=== PATIENT | female | born 1985 | race Two or more races ===

== ENCOUNTER 2016-09-20 14:06 | Inpatient (IN) | payer MEDICAID ==
[2016-09-20] MEDS ORDERED: Acetaminophen 325 MG Tab PO PRN (15:45)
[2016-09-20] MEDS ORDERED: Sodium Chloride 0.9% 10 ML Syringe FLUSH PRN (15:45)
[2016-09-20] MEDS ORDERED: fentaNYL 100 MCG/2 ML SDV IVPUSH PRN (15:45)
--- NOTE | 2016-09-20 15:54 | PCM.LDHP ---
L&D History of Present Illness - General Date of Service: 09/20/16 (SROM at home) Admit Problem/Dx: Patient Status Order with Admit Dx/Problem 09/20/16 15:45 Patient Status [ADT] Routine Patient Status: Refer to Observation Admission Diagnosis/Problem: Reason for Admit: SROM at home Nurse Unit Type: Labor and Delivery Admitting Physician: Audrey Judge Attending Physician: Audrey Judge Admission Diagnosis/Problem Admission Diagnosis/Problem Source of Information: Patient History Limitations: Reports: No limitations - History of Present Illness Timing/Duration: Reports: minutes: (6 minutes) Location, : Reports: Abdomen Quality: Reports: Pressure Severity: mild Improves with: Reports: None Worsens with: Reports: None Associated Symptoms: Reports: vaginal fluid - Related Data Allergies/Adverse Reactions: Allergies Allergy/AdvReac Type Severity Reaction Status Date / Time No Known Allergies Allergy Verified 03/28/16 12:08 Home Medications: Home Meds Vits #90/Iron Fum/FA [ Formula] 1 each PO DAILY 09/20/16 [ History] Past Medical History - Past Health History Medical/Surgical History: Denies Medical/Surgical History Respiratory History: Reports: Asthma, Other (see below) Other 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 History: 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 Para: 3 LMP (Approximate): (GUSTAVO 09/22/16) - Infectious Disease History Infectious Disease History: Reports: None Social & Family History - Family History Family Medical History: Noncontributory - Tobacco Use Smoking Status *Q: Never Smoker - Recreational Drug Use Recreational Drug Use: No H&P Review of Systems - Review of Systems: Review Of Systems: See Below General: Reports: no symptoms HEENT: Reports: no symptoms Pulmonary: Reports: no symptoms Cardiovascular: Reports: no symptoms Gastrointestinal: Reports: No symptoms Genitourinary: Reports: no symptoms Musculoskeletal: Reports: no symptoms Skin: Reports: no symptoms Psychiatric: Reports: no symptoms Neurological: Reports: no symptoms Hematologic/Lymphatic: Reports: no symptoms Immunologic: Reports: no symptoms L&D Exam - Exam Exam: See Below - Vital Signs Weight: 141 lb 8.588 oz - OB Specific Contraction Intensity: Mild movement: active heart tones: present heart tones per min: 130 Heart Rate (FHR) Variability: Moderate (6-25 bmp) Presentation: Vertex Estimated Weight: 7 pounds - Tesfaye Score Tesfaye Score Cervix Position: Posterior Tesfaye Score Consistency: Soft Tesfaye Score Effacement: 31-50% Tesfaye Score Dilation: 3-4 cm Tesfaye Score 's Station: -1 ,0 Tesfaye Score Total: 7 - Exam General: alert, oriented HEENT: PERRLA, Mucosa moist & pink Neck: supple Lungs: Clear to auscultation Cardiovascular: regular rhythm Abdomen: normal bowel sounds Rectal Exam: Normal exam Genitourinary: Normal external exam Back Exam: normal inspection, full range of motion Extremities: normal inspection Skin: warm, dry, intact Neurological: cranial nerves intact, reflexes equal bilateral Psychiatric: alert, normal affect, normal mood - Patient Data Lab Results last 24 hrs: Laboratory Results - last 24 hr 09/20/16 09/20/16 09/20/16 Range/Units 14:41 14:45 14:45 WBC (4.5-11.0) K/uL RBC (3.30-5.50) M/uL Hgb (12.0-15.0) g/dL Hct (36.0-48.0) % MCV (80-98) fL MCH (27-31) pg MCHC (32-36) % Plt Count (150-400) K/uL Neut % (Auto) (36-66) % Lymph % (Auto) (24-44) % [place] % (Auto) (2-6) % Eos % (Auto) (2-4) % Baso % (Auto) (0-1) % Urine Color Yellow Urine Appearance Clear Urine pH 7.0 (4.5-8.0) Ur Specific [place] 1.000 L (1.008-1.030) Urine Protein Negative (NEGATIVE) mg/dL Urine Glucose (UA) Normal (NEGATIVE) mg/dL Urine Ketones Negative (NEGATIVE) mg/dL Urine Occult Blood Negative (NEGATIVE) Urine Nitrite Negative (NEGATIVE) Urine Bilirubin Negative (NEGATIVE) Urine Urobilinogen Normal (NORMAL) mg/dL Ur Leukocyte Esterase Negative (NEGATIVE) Urine RBC Not seen (0-5) Urine WBC Not seen (0-5) Ur Epithelial Cells Few Amorphous Sediment Not seen Urine Bacteria Rare Urine Mucus Not seen Membrane Rupture Positive H (NEGATIVE) Urine Opiates Screen Negative (NEGATIVE) Ur Oxycodone Screen Negative (NEGATIVE) Urine Methadone Screen Negative (NEGATIVE) Ur Propoxyphene Screen Negative (NEGATIVE) Ur Barbiturates Screen Negative (NEGATIVE) Ur Tricyclics Screen Negative (NEGATIVE) Ur Phencyclidine Scrn Negative (NEGATIVE) Ur Amphetamine Screen Negative (NEGATIVE) U Methamphetamines Scrn Negative (NEGATIVE) Urine MDMA Screen Negative (NEGATIVE) U Benzodiazepines Scrn Negative (NEGATIVE) U Cocaine Metab Screen Negative (NEGATIVE) U Marijuana (THC) Screen Negative (NEGATIVE) 09/20/16 Range/Units 14:52 WBC 7.4 (4.5-11.0) K/uL RBC 4.15 (3.30-5.50) M/uL Hgb 11.8 L (12.0-15.0) g/dL Hct 35.3 L (36.0-48.0) % MCV 85 (80-98) fL MCH 28 (27-31) pg MCHC 33 (32-36) % Plt Count 186 (150-400) K/uL Neut % (Auto) 77 H (36-66) % Lymph % (Auto) 13 L (24-44) % [place] % (Auto) 9 H (2-6) % Eos % (Auto) 0 L (2-4) % Baso % (Auto) 1 (0-1) % Urine Color Urine Appearance Urine pH (4.5-8.0) Ur Specific [place] (1.008-1.030) Urine Protein (NEGATIVE) mg/dL Urine Glucose (UA) (NEGATIVE) mg/dL Urine Ketones (NEGATIVE) mg/dL Urine Occult Blood (NEGATIVE) Urine Nitrite (NEGATIVE) Urine Bilirubin (NEGATIVE) Urine Urobilinogen (NORMAL) mg/dL Ur Leukocyte Esterase (NEGATIVE) Urine RBC (0-5) Urine WBC (0-5) Ur Epithelial Cells Amorphous Sediment Urine Bacteria Urine Mucus Membrane Rupture (NEGATIVE) Urine Opiates Screen (NEGATIVE) Ur Oxycodone Screen (NEGATIVE) Urine Methadone Screen (NEGATIVE) Ur Propoxyphene Screen (NEGATIVE) Ur Barbiturates Screen (NEGATIVE) Ur Tricyclics Screen (NEGATIVE) Ur Phencyclidine Scrn (NEGATIVE) Ur Amphetamine Screen (NEGATIVE) U Methamphetamines Scrn (NEGATIVE) Urine MDMA Screen (NEGATIVE) U Benzodiazepines Scrn (NEGATIVE) U Cocaine Metab Screen (NEGATIVE) U Marijuana (THC) Screen (NEGATIVE) Result Diagrams: 09/20/16 14:52 - Problem List (1) SNOMED Code(s): 23035114 ICD Code: Z33.1 - STATE, INCIDENTAL Status: Acute Current Visit : Yes Qualifiers: Weeks of gestation: 39 weeks Qualified Code(s): Z3A.39 - 39 weeks gestation of (2) SROM (spontaneous rupture of membranes) SNOMED Code(s): 329337888 ICD Code: DWX8654 - Status: Acute Current Visit: Yes Problem List Initiated/Reviewed/Updated: Yes Orders Last 24hrs: Active Orders 24 hr Category Date Time Status Patient Status [ADT] Routine ADT 09/20/16 15:45 Ordered Antiembolic Devices [RC] .Routine Care 09/20/16 15:47 Ordered Bedrest Bathroom Privileges [RC] ASDIRECTED Care 09/20/16 15:45 Ordered Communication Order [RC] ASDIRECTED Care 09/20/16 15:45 Ordered Heart Tones [RC] PER UNIT ROUTINE Care 09/20/16 15:45 Ordered May Shower [RC] ASDIRECTED Care 09/20/16 15:45 Ordered Notify Provider Vital Signs [RC] PRN Care 09/20/16 15:45 Ordered Notify Provider [RC] PRN Care 09/20/16 15:45 Ordered Up ad Samantha [RC] ASDIRECTED Care 09/20/16 15:45 Ordered VTE/DVT Education [RC] Click to Edit Care 09/20/16 15:47 Ordered Vital Signs [RC] PER UNIT ROUTINE Care 09/20/16 15:45 Ordered Acetaminophen [Tylenol] Med 09/20/16 15:45 Ordered 650 mg PO Q4H PRN Sodium Chloride 0.9% [Saline Flush] Med 09/20/16 15:45 Ordered 10 ml FLUSH ASDIRECTED PRN fentaNYL [Sublimaze] Med 09/20/16 15:45 Ordered 100 mcg IVPUSH Q1H PRN DVT/VTE Prophylaxis Reflex [OM.PC] Routine Oth 09/20/16 15:45 Ordered Saline Lock Insert [OM.PC] Routine Oth 09/20/16 15:45 Ordered Resuscitation Status Routine Resus Stat 09/20/16 15:45 Ordered Assessment/Plan Comment:: 31 year old SROM at home At 1130 clear fluid. mild contractions Will use oral Misoprostol to augment labor Plan for vaginal delivery Labs: GBS neg, HIV neg, Rubella Immune, ABO O pos, HB 11.8 and plt 186 Pain management per patient request
[2016-09-20] MEDS ORDERED: Misoprostol 50 MCG (1/2 of 100 MCG) Tab PO ONE (16:00)
--- NOTE | 2016-09-20 18:07 | PCM.PNLD ---
Labor Progress Note - VS & Meds Active Medications: Current Medications Acetaminophen (Tylenol) 650 mg PO Q4H PRN PRN Reason: Pain (Mild 1-3) and fever Fentanyl (Sublimaze) 100 mcg IVPUSH Q1H PRN PRN Reason: Pain (moderate 4-6) Sodium Chloride (Saline Flush) 10 ml FLUSH ASDIRECTED PRN PRN Reason: Keep Vein Open Discontinued Medications Misoprostol (Cytotec) 50 mcg PO ONETIME ONE Stop: 09/20/16 16:01 Last Admin: 09/20/16 16:28 Dose: 50 mcg - Uterine Contractions Uterine Monitoring Mode: None in Use Contraction Frequency (min): 7 Contraction Duration (sec): 90 Contraction Intensity: Mild - Monitoring Monitor Mode: External Ultrasound Heart Rate (FHR) Baseline: 150 Heart Rate (FHR) Variability: Moderate (6-25 bmp) Accelerations: Present, 15x15 Decelerations: None - Vaginal Exam Dilation (cm): 3 Effacement (Percent): 75 Station: 0 Cervical Position: Posterior Sterile Vaginal Exam Performed By: Audrey Judge Vaginal Exam Comment: Some change with effacement - Labor Progress (Free Text) Labor Progress: pitocin to augment contractions Plan for vaginal delivery
[2016-09-20] MEDS ORDERED: Lactated Ringers 1,000 ML IV ONE (20:05)
[2016-09-20] MEDS ORDERED: Lactated Ringers 1,000 ML IV SCH (21:05)
[2016-09-20] MEDS ORDERED: Ropivacaine 100 ML ONE (21:36)
[2016-09-20] MEDS ORDERED: Naloxone 0.4 MG/ML SDV ONE (22:02)
[2016-09-20] MEDS ORDERED: Mineral Oil 10 ML Bottle ONE (22:02)
[2016-09-20] MEDS ORDERED: Lidocaine 1% 50 ML MDV ONE (22:03)
[2016-09-20] MEDS ORDERED: Diphtheria,Pertussis(Acell),Tetanus Vaccine 0.5 ML SDV IM ONE (23:04)
--- NOTE | 2016-09-20 23:15 | PCM.DEL ---
L & D Note - General Info Date of Service: 09/20/16 (delivery) Mother's Due Date: 09/22/16 - Delivery Note Labor: spontaneous, augmented by oxytocin Cervical Ripening Method: Misoprostil Delivery Outcome: Livebirth Infant Delivery Method: Spontaneous Vaginal Delivery Infant Delivery Mode: Spontaneous Presentation: Vertex Nuchal cord: none Anesthesia Type: Epidural Amniotic Fluid Description: Clear Episiotomy Type: None Laceration: none Placenta: intact, spontaneous Cord: 3 vessels Estimated blood loss: 100 Resuscitation needed: Yes : stimulated, warmed, blanket used Provider: Audrey Judge Score 1 min: 9 Score 5 min: 10 Score 10 min: 10 Second Stage Interventions: Reports: Encouragement Given, Pushing Effectively, Pushing, McRobert's Position Delivery Comments (Free Text/Narrative):: this 31 year old G4 now P4 39 5/7 weeks gestation delivered a viable female over an intact perineum in AYE position. Baby was delivered into mother's abdomen where she was dried and stimulated. She transitioned well. crying spontaneously. 9,10,10. three vessel cord. Weight 7-2.2 pounds The placenta was expressed spontaneously intact the active management of the third stage was used. no lacerations of the cervix, vagina, rectum or perineum were found ELB 100cc Mother and baby to post and nursery in stable condition. first stage 6818-9657 second stage [id number] Thirds stage 9377-7528 Induction Criteria - Tesfaye Score Tesfaye Score Dilation: 3-4 cm Tesfaye Score Effacement: 60-70% Tesfaye Score 's Station: -1 ,0 Tesfaye Score Consistency: Soft Tesfaye Score Cervix Position: Midposition Tesfaye Score Total: 9 Tesfaye Score Presenting Part: Reports: Cephalic - Augmentation Estimated Pelvis: Reports: Adequate weight estimated:: Reports: AGA Reassuring monitoring strip: Yes Absence of tachy systole: Yes - General Info Date of Service: 09/20/16 (delivery) Admission Dx/Problem (Free Text): Patient Status Order with Admit Dx/Problem 09/20/16 15:45 Patient Status [ADT] Routine Patient Status: Refer to Observation Admission Diagnosis/Problem: Reason for Admit: SROM at home Nurse Unit Type: Labor and Delivery Admitting Physician: Audrey Judge Attending Physician: Audrey Judge Admission Diagnosis/Problem Admission Diagnosis/Problem Functional Status: Reports: pain controlled - Review of Systems General: Reports: no symptoms HEENT: Reports: no symptoms Pulmonary: Reports: no symptoms Cardiovascular: Reports: no symptoms Gastrointestinal: Reports: No symptoms Genitourinary: Reports: no symptoms Musculoskeletal: Reports: no symptoms Skin: Reports: no symptoms Neurological: Reports: no symptoms Psychiatric: Reports: no symptoms - Patient Data Vitals - most recent: Last Vital Signs Temp 99.6 F 09/20/16 21:02 Pulse 77 09/20/16 22:15 Resp 18 09/20/16 22:15 BP 113/70 09/20/16 22:15 Pulse Ox 98 09/20/16 22:15 Weight - most recent: 141 lb 8.588 oz Lab Results last 24 hrs: Laboratory Results - last 24 hr 09/20/16 09/20/16 09/20/16 Range/Units 14:41 14:45 14:45 WBC (4.5-11.0) K/uL RBC (3.30-5.50) M/uL Hgb (12.0-15.0) g/dL Hct (36.0-48.0) % MCV (80-98) fL MCH (27-31) pg MCHC (32-36) % Plt Count (150-400) K/uL Neut % (Auto) (36-66) % Lymph % (Auto) (24-44) % [place] % (Auto) (2-6) % Eos % (Auto) (2-4) % Baso % (Auto) (0-1) % Urine Color Yellow Urine Appearance Clear Urine pH 7.0 (4.5-8.0) Ur Specific [place] 1.000 L (1.008-1.030) Urine Protein Negative (NEGATIVE) mg/dL Urine Glucose (UA) Normal (NEGATIVE) mg/dL Urine Ketones Negative (NEGATIVE) mg/dL Urine Occult Blood Negative (NEGATIVE) Urine Nitrite Negative (NEGATIVE) Urine Bilirubin Negative (NEGATIVE) Urine Urobilinogen Normal (NORMAL) mg/dL Ur Leukocyte Esterase Negative (NEGATIVE) Urine RBC Not seen (0-5) Urine WBC Not seen (0-5) Ur Epithelial Cells Few Amorphous Sediment Not seen Urine Bacteria Rare Urine Mucus Not seen Membrane Rupture Positive H (NEGATIVE) Urine Opiates Screen Negative (NEGATIVE) Ur Oxycodone Screen Negative (NEGATIVE) Urine Methadone Screen Negative (NEGATIVE) Ur Propoxyphene Screen Negative (NEGATIVE) Ur Barbiturates Screen Negative (NEGATIVE) Ur Tricyclics Screen Negative (NEGATIVE) Ur Phencyclidine Scrn Negative (NEGATIVE) Ur Amphetamine Screen Negative (NEGATIVE) U Methamphetamines Scrn Negative (NEGATIVE) Urine MDMA Screen Negative (NEGATIVE) U Benzodiazepines Scrn Negative (NEGATIVE) U Cocaine Metab Screen Negative (NEGATIVE) U Marijuana (THC) Screen Negative (NEGATIVE) 09/20/16 Range/Units 14:52 WBC 7.4 (4.5-11.0) K/uL RBC 4.15 (3.30-5.50) M/uL Hgb 11.8 L (12.0-15.0) g/dL Hct 35.3 L (36.0-48.0) % MCV 85 (80-98) fL MCH 28 (27-31) pg MCHC 33 (32-36) % Plt Count 186 (150-400) K/uL Neut % (Auto) 77 H (36-66) % Lymph % (Auto) 13 L (24-44) % [place] % (Auto) 9 H (2-6) % Eos % (Auto) 0 L (2-4) % Baso % (Auto) 1 (0-1) % Urine Color Urine Appearance Urine pH (4.5-8.0) Ur Specific [place] (1.008-1.030) Urine Protein (NEGATIVE) mg/dL Urine Glucose (UA) (NEGATIVE) mg/dL Urine Ketones (NEGATIVE) mg/dL Urine Occult Blood (NEGATIVE) Urine Nitrite (NEGATIVE) Urine Bilirubin (NEGATIVE) Urine Urobilinogen (NORMAL) mg/dL Ur Leukocyte Esterase (NEGATIVE) Urine RBC (0-5) Urine WBC (0-5) Ur Epithelial Cells Amorphous Sediment Urine Bacteria Urine Mucus Membrane Rupture (NEGATIVE) Urine Opiates Screen (NEGATIVE) Ur Oxycodone Screen (NEGATIVE) Urine Methadone Screen (NEGATIVE) Ur Propoxyphene Screen (NEGATIVE) Ur Barbiturates Screen (NEGATIVE) Ur Tricyclics Screen (NEGATIVE) Ur Phencyclidine Scrn (NEGATIVE) Ur Amphetamine Screen (NEGATIVE) U Methamphetamines Scrn (NEGATIVE) Urine MDMA Screen (NEGATIVE) U Benzodiazepines Scrn (NEGATIVE) U Cocaine Metab Screen (NEGATIVE) U Marijuana (THC) Screen (NEGATIVE) Med Orders - Current: Current Medications Acetaminophen (Tylenol) 650 mg PO Q4H PRN PRN Reason: Pain (Mild 1-3) and fever Fentanyl (Sublimaze) 100 mcg IVPUSH Q1H PRN PRN Reason: Pain (moderate 4-6) Last Admin: 09/20/16 20:27 Dose: 100 mcg Oxytocin/Sodium Chloride (Pitocin In Ns 20 Units/1,000 Ml) 20 unit in 1,000 mls @ 6 mls/hr IV TITRATE CLOVIS; 2 MUNITS/MIN PRN Reason: Protocol Last Titration: 09/20/16 19:30 Dose: 4 munits/min, 12 mls/hr Lactated Ringer's (Ringers, Lactated) 1,000 mls @ 150 mls/hr IV ASDIRECTED CLOVIS Last Admin: 09/20/16 21:05 Dose: 150 mls/hr Sodium Chloride (Saline Flush) 10 ml FLUSH ASDIRECTED PRN PRN Reason: Keep Vein Open Discontinued Medications Lactated Ringer's (Ringers, Lactated) 1,000 mls @ 999 mls/hr IV BOLUS ONE Stop: 09/20/16 21:05 Last Admin: 09/20/16 21:05 Dose: 999 mls/hr Ropivacaine (Naropin 0.2%) Confirm Administered Dose 100 mls @ as directed .ROUTE .STK-MED ONE Stop: 09/20/16 21:37 Lidocaine HCl (Xylocaine 1%) Confirm Administered Dose 100 ml .ROUTE .STK-MED ONE Stop: 09/20/16 22:04 Mineral Oil (Muri-Lube) Confirm Administered Dose 10 ml .ROUTE .STK-MED ONE Stop: 09/20/16 22:03 Misoprostol (Cytotec) 50 mcg PO ONETIME ONE Stop: 09/20/16 16:01 Last Admin: 09/20/16 16:28 Dose: 50 mcg Naloxone HCl (Narcan) Confirm Administered Dose 0.4 mg .ROUTE .STK-MED ONE Stop: 09/20/16 22:03 - Exam General: alert, oriented HEENT: Pupils equal, Pupils reactive, EOMI, Mucous membr. moist/pink Neck: supple Lungs: Clear to auscultation, Normal respiratory effort Cardiovascular: regular rate, regular rhythm Abdomen: bowel sounds present, soft, no tenderness, no distension (Female) Exam: Normal external exam, Normal speculum exam, Normal bimanual exam, Enlarged uterus, Vaginal bleeding Back Exam: normal inspection, full range of motion Extremities: no edema Skin: warm, dry, intact Wound/Incisions: healing well Neurological: no new focal deficit Psy/Mental Status: alert, normal affect, normal mood - Problem List & Annotations (1) SNOMED Code(s): 48667876 Code(s): Z33.1 - STATE, INCIDENTAL Status: Acute Current Visit: Yes Qualifiers: Weeks of gestation: 39 weeks Qualified Code(s): Z3A.39 - 39 weeks gestation of (2) SROM (spontaneous rupture of membranes) SNOMED Code(s): 833086493 Code(s): BDG8103 - Status: Acute Current Visit: Yes (3) Normal labor and delivery SNOMED Code(s): 51784081, 540837406 Code(s): O80 - ENCOUNTER FOR FULL-TERM UNCOMPLICATED DELIVERY Status: Acute Current Visit: Yes - Problem List Review Problem List Initiated/Reviewed/Updated: Yes - My Orders Last 24 Hours: My Active Orders 09/20/16 15:45 Bedrest Bathroom Privileges [RC] ASDIRECTED Communication Order [RC] ASDIRECTED May Shower [RC] ASDIRECTED Notify Provider Vital Signs [RC] PRN Notify Provider [RC] PRN Up ad Samantha [RC] ASDIRECTED Vital Signs [RC] PER UNIT ROUTINE Acetaminophen [Tylenol] 650 mg PO Q4H PRN Sodium Chloride 0.9% [Saline Flush] 10 ml FLUSH ASDIRECTED PRN fentaNYL [Sublimaze] 100 mcg IVPUSH Q1H PRN DVT/VTE Prophylaxis Reflex [OM.PC] Routine Saline Lock Insert [OM.PC] Routine Resuscitation Status Routine 09/20/16 15:47 Antiembolic Devices [RC] .Routine VTE/DVT Education [RC] Click to Edit 09/20/16 18:15 Oxytocin/Normal Saline [Pitocin in NS 20 Units/1,000 ML] 20 unit in 1,000 ml IV TITRATE 09/20/16 21:05 Lactated Ringers [Ringers, Lactated] 1,000 ml IV ASDIRECTED 09/20/16 23:04 Patient Status [ADT] Routine Vital Signs [RC] PFP Acetaminophen/Codeine [Tylenol with Codeine No.3 300MG/30MG] 1 tab PO Q4H PRN Diphth,Pertuss(Acell),Tet Vac [Adacel] 0.5 ml IM .ONCE ONE Ibuprofen [Motrin] 600 mg PO Q6H PRN Assess Lochia [WOMSER] Per Unit Routine Assess Uterine Involution [WOMSER] Per Unit Routine 09/20/16 23:05 Perineal Care [OM.PC] Per Unit Routine Peripheral IV Discontinue [OM.PC] Routine Sitz Bath [OM.PC] Per Unit Routine 09/21/16 05:11 CBC WITH AUTO DIFF [HEME] AM 09/21/16 Breakfast Regular Diet [DIET] - Assessment Assessment:: 09/20/16 31 year old G4 now P4 without complications augmented contractions with pitocin for dysfunctional labor pattern after SROM at home. - Plan Plan:: 31 year old SROM at home At 1130 clear fluid. mild contractions Will use oral Misoprostol to augment labor Plan for vaginal delivery Labs: GBS neg, HIV neg, Rubella Immune, ABO O pos, HB 11.8 and plt 186 Pain management per patient request 09/20/16 routine cares 24-48 hour stay encouraged breast feeding CBC in am
--- NOTE | 2016-09-21 04:23 | ANES ---
DATE OF SERVICE: 09/20/2016 Anesthesia Procedure note. INDICATIONS: A 31-year-old lady in the Labor and Delivery department in active labor. She has been induced all day long. She is now 4 to 5 cm. I was asked by Audrey Judge to place a labor epidural. Ms. Louis and her significant other neither speak Yi. 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 The procedure was explained in detail. All questions were answered. Consent was signed. DESCRIPTION OF PROCEDURE: She was placed in a sitting position. After a Betadine solution prep, the epidural was accomplished. What I believe is L4-5 x1 with a good feel. No paresthesia. No CSF. No blood. Xylocaine 1-1/2% with epinephrine 1 to 200,000, 5 mL was injected through the needle. The epidural catheter was then placed easily to the four sterling and the needle was removed. This was taped in place. She was laid supine and given a bolus of ropivacaine 0.2%, 12 mL. After this continuous infusion of ropivacaine 0.2%, 12 mL was started, within 10 minutes, her contractions were very tolerable for her, tolerated the procedure well. Jace Jacob CRNA /[id number]
--- NOTE | 2016-09-21 08:05 | PCM.PNPP ---
- General Info Date of Service: 09/21/16 ( day one) Admission Dx/Problem (Free Text): Patient Status Order with Admit Dx/Problem 09/20/16 15:45 Patient Status [ADT] Routine Patient Status: Refer to Observation Admission Diagnosis/Problem: Reason for Admit: SROM at home Nurse Unit Type: Labor and Delivery Admitting Physician: Audrey Judge Attending Physician: Audrey Judge Admission Diagnosis/Problem Admission Diagnosis/Problem Functional Status: Reports: pain controlled - Review of Systems General: Reports: no symptoms HEENT: Reports: no symptoms Pulmonary: Reports: no symptoms Cardiovascular: Reports: no symptoms Gastrointestinal: Reports: No symptoms Genitourinary: Reports: no symptoms Musculoskeletal: Reports: no symptoms Skin: Reports: no symptoms Neurological: Reports: no symptoms Psychiatric: Reports: no symptoms - General Info Date of Service: 09/21/16 - Patient Data Vital Signs - most recent: Last Vital Signs Temp 37.3 C 09/21/16 07:49 Pulse 64 09/21/16 07:49 Resp 16 09/21/16 07:49 BP 107/60 09/21/16 07:49 Pulse Ox 97 09/21/16 07:49 Weight - most recent: 64.2 kg Lab Results - last 24 hrs: Laboratory Results - last 24 hr 09/20/16 09/20/16 09/20/16 Range/Units 14:41 14:45 14:45 WBC (4.5-11.0) K/uL RBC (3.30-5.50) M/uL Hgb (12.0-15.0) g/dL Hct (36.0-48.0) % MCV (80-98) fL MCH (27-31) pg MCHC (32-36) % Plt Count (150-400) K/uL Neut % (Auto) (36-66) % Lymph % (Auto) (24-44) % [place] % (Auto) (2-6) % Eos % (Auto) (2-4) % Baso % (Auto) (0-1) % Urine Color Yellow Urine Appearance Clear Urine pH 7.0 (4.5-8.0) Ur Specific [place] 1.000 L (1.008-1.030) Urine Protein Negative (NEGATIVE) mg/dL Urine Glucose (UA) Normal (NEGATIVE) mg/dL Urine Ketones Negative (NEGATIVE) mg/dL Urine Occult Blood Negative (NEGATIVE) Urine Nitrite Negative (NEGATIVE) Urine Bilirubin Negative (NEGATIVE) Urine Urobilinogen Normal (NORMAL) mg/dL Ur Leukocyte Esterase Negative (NEGATIVE) Urine RBC Not seen (0-5) Urine WBC Not seen (0-5) Ur Epithelial Cells Few Amorphous Sediment Not seen Urine Bacteria Rare Urine Mucus Not seen Membrane Rupture Positive H (NEGATIVE) Urine Opiates Screen Negative (NEGATIVE) Ur Oxycodone Screen Negative (NEGATIVE) Urine Methadone Screen Negative (NEGATIVE) Ur Propoxyphene Screen Negative (NEGATIVE) Ur Barbiturates Screen Negative (NEGATIVE) Ur Tricyclics Screen Negative (NEGATIVE) Ur Phencyclidine Scrn Negative (NEGATIVE) Ur Amphetamine Screen Negative (NEGATIVE) U Methamphetamines Scrn Negative (NEGATIVE) Urine MDMA Screen Negative (NEGATIVE) U Benzodiazepines Scrn Negative (NEGATIVE) U Cocaine Metab Screen Negative (NEGATIVE) U Marijuana (THC) Screen Negative (NEGATIVE) 09/20/16 09/21/16 Range/Units 14:52 05:00 WBC 7.4 10.6 (4.5-11.0) K/uL RBC 4.15 3.87 (3.30-5.50) M/uL Hgb 11.8 L 11.2 L (12.0-15.0) g/dL Hct 35.3 L 33.0 L (36.0-48.0) % MCV 85 85 (80-98) fL MCH 28 29 (27-31) pg MCHC 33 34 (32-36) % Plt Count 186 163 (150-400) K/uL Neut % (Auto) 77 H 77 H (36-66) % Lymph % (Auto) 13 L 14 L (24-44) % [place] % (Auto) 9 H 9 H (2-6) % Eos % (Auto) 0 L 1 L (2-4) % Baso % (Auto) 1 0 (0-1) % Urine Color Urine Appearance Urine pH (4.5-8.0) Ur Specific [place] (1.008-1.030) Urine Protein (NEGATIVE) mg/dL Urine Glucose (UA) (NEGATIVE) mg/dL Urine Ketones (NEGATIVE) mg/dL Urine Occult Blood (NEGATIVE) Urine Nitrite (NEGATIVE) Urine Bilirubin (NEGATIVE) Urine Urobilinogen (NORMAL) mg/dL Ur Leukocyte Esterase (NEGATIVE) Urine RBC (0-5) Urine WBC (0-5) Ur Epithelial Cells Amorphous Sediment Urine Bacteria Urine Mucus Membrane Rupture (NEGATIVE) Urine Opiates Screen (NEGATIVE) Ur Oxycodone Screen (NEGATIVE) Urine Methadone Screen (NEGATIVE) Ur Propoxyphene Screen (NEGATIVE) Ur Barbiturates Screen (NEGATIVE) Ur Tricyclics Screen (NEGATIVE) Ur Phencyclidine Scrn (NEGATIVE) Ur Amphetamine Screen (NEGATIVE) U Methamphetamines Scrn (NEGATIVE) Urine MDMA Screen (NEGATIVE) U Benzodiazepines Scrn (NEGATIVE) U Cocaine Metab Screen (NEGATIVE) U Marijuana (THC) Screen (NEGATIVE) Med Orders - Current: Current Medications Acetaminophen (Tylenol) 650 mg PO Q4H PRN PRN Reason: Pain (Mild 1-3) and fever Last Admin: 09/21/16 02:03 Dose: 650 mg Acetaminophen/Codeine Phosphate (Tylenol With Codeine No.3 300mg/30mg) 1 tab PO Q4H PRN PRN Reason: Pain (moderate 4-6) Diphtheria/Tetanus/Acell Pertussis (Adacel) 0.5 ml IM .ONCE ONE Stop: 09/21/16 14:01 Fentanyl (Sublimaze) 100 mcg IVPUSH Q1H PRN PRN Reason: Pain (moderate 4-6) Last Admin: 09/20/16 20:27 Dose: 100 mcg Oxytocin/Sodium Chloride (Pitocin In Ns 20 Units/1,000 Ml) 20 unit in 1,000 mls @ 6 mls/hr IV TITRATE CLOVIS; 2 MUNITS/MIN PRN Reason: Protocol Last Titration: 09/20/16 23:18 Dose: 150 mls/hr Lactated Ringer's (Ringers, Lactated) 1,000 mls @ 150 mls/hr IV ASDIRECTED CLOVIS Last Admin: 09/20/16 21:05 Dose: 150 mls/hr Ibuprofen (Motrin) 600 mg PO Q6H PRN PRN Reason: mild pain or fever Sodium Chloride (Saline Flush) 10 ml FLUSH ASDIRECTED PRN PRN Reason: Keep Vein Open Discontinued Medications Lactated Ringer's (Ringers, Lactated) 1,000 mls @ 999 mls/hr IV BOLUS ONE Stop: 09/20/16 21:05 Last Admin: 09/20/16 21:05 Dose: 999 mls/hr Ropivacaine (Naropin 0.2%) Confirm Administered Dose 100 mls @ as directed .ROUTE .STK-MED ONE Stop: 09/20/16 21:37 Lidocaine HCl (Xylocaine 1%) Confirm Administered Dose 100 ml .ROUTE .STK-MED ONE Stop: 09/20/16 22:04 Mineral Oil (Muri-Lube) Confirm Administered Dose 10 ml .ROUTE .STK-MED ONE Stop: 09/20/16 22:03 Misoprostol (Cytotec) 50 mcg PO ONETIME ONE Stop: 09/20/16 16:01 Last Admin: 09/20/16 16:28 Dose: 50 mcg Naloxone HCl (Narcan) Confirm Administered Dose 0.4 mg .ROUTE .STK-MED ONE Stop: 09/20/16 22:03 - Interaction Disposition, : [place] at Bedside Infant Interaction: Holding Infant Infant Feeding: Attempted ; Nursed Fair/Poor, Bottle Fed Support Person: Significant Other, Friend, Other (see below) - Recovery Exam Fundal Tone: Firm Fundal Level: 2 Fingerbreadths Above Umbilicus Fundal Placement: Right Lochia Amount: Moderate Lochia Color: Rubra/Red Perineum Description: Intact, Minimal Bruising/Swelling Episiotomy/Laceration: None Bladder Status: Indwelling Catheter in Place Urinary Elimination: Voided, Other (see below) Other Urinary Elimination, : after hayes was discontinued - Exam General: alert, oriented HEENT: Pupils equal Neck: supple Lungs: Clear to auscultation, Normal respiratory effort Cardiovascular: regular rate, regular rhythm Abdomen: bowel sounds present, soft, no tenderness, no distension Extremities: no edema Skin: warm, dry, intact Neurological: no new focal deficit Psy/Mental Status: alert, normal affect, normal mood - Problem List & Annotations (1) Normal vaginal delivery SNOMED Code(s): 67973570 Code(s): O80 - ENCOUNTER FOR FULL-TERM UNCOMPLICATED DELIVERY Status: Acute Current Visit: Yes (2) () SNOMED Code(s): 203585899 Code(s): Z78.9 - OTHER SPECIFIED HEALTH STATUS Status: Acute Current Visit: Yes (3) SNOMED Code(s): 64516797 Code(s): Z33.1 - STATE, INCIDENTAL Status: Acute Current Visit: Yes Qualifiers: Weeks of gestation: 39 weeks Qualified Code(s): Z3A.39 - 39 weeks gestation of (4) SROM (spontaneous rupture of membranes) SNOMED Code(s): 654568419 Code(s): LFG4873 - Status: Acute Current Visit: Yes - Problem List Review Problem List Initiated/Reviewed/Updated: Yes - Assessment Assessment:: 09/20/16 31 year old G4 now P4 without complications augmented contractions with pitocin for dysfunctional labor pattern after SROM at home. 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 mild contractions Will use oral Misoprostol to augment labor Plan for vaginal delivery Labs: GBS neg, HIV neg, Rubella Immune, ABO O pos, HB 11.8 and plt 186 Pain management per patient request 09/20/16 routine cares 24-48 hour stay encouraged breast feeding CBC in am 09/21/2016 Routine cares Encourage and support Pain medication per patients request Will plan discharge 24-48 hours
[2016-09-21] MEDS: Ibuprofen 600 MG Tab PO PRN ×3 (08:08→23:31)
[2016-09-21] MEDS: Acetaminophen/Codeine 300-30 MG Tab PO PRN ×2 (09:27→18:38)
[2016-09-21] MEDS ORDERED: Lanolin 100% Cream 40 GM Tube TOP PRN (10:01)
[2016-09-21] MEDS: Prenatal Multivitamin with Calcium/Folic Acid/Iron Tab PO SCH (11:05)
[2016-09-21] MEDS ORDERED: Diphtheria,Pertussis(Acell),Tetanus Vaccine 0.5 ML SDV IM ONE (14:00)
[2016-09-22 07:46] VITALS: BP 99/60
--- NOTE | 2016-09-22 08:22 | PCM.PNPP ---
- General Info Date of Service: 09/22/16 ( day two) Admission Dx/Problem (Free Text): Patient Status Order with Admit Dx/Problem 09/20/16 15:45 Patient Status [ADT] Routine Patient Status: Refer to Observation Admission Diagnosis/Problem: Reason for Admit: SROM at home Nurse Unit Type: Labor and Delivery Admitting Physician: Audrey Judge Attending Physician: Audrey Judge Admission Diagnosis/Problem Admission Diagnosis/Problem Functional Status: Reports: pain controlled - Review of Systems General: Reports: no symptoms HEENT: Reports: no symptoms Pulmonary: Reports: no symptoms Cardiovascular: Reports: no symptoms Gastrointestinal: Reports: No symptoms Genitourinary: Reports: no symptoms Musculoskeletal: Reports: no symptoms Skin: Reports: no symptoms Neurological: Reports: no symptoms Psychiatric: Reports: no symptoms - General Info Date of Service: 09/22/16 - Patient Data Vital Signs - most recent: Last Vital Signs Temp 36.6 C 09/22/16 07:45 Pulse 62 09/22/16 07:45 Resp 16 09/22/16 07:45 BP 99/60 09/22/16 07:45 Pulse Ox 97 09/22/16 07:45 Weight - most recent: 64.2 kg Med Orders - Current: Current Medications Acetaminophen (Tylenol) 650 mg PO Q4H PRN PRN Reason: Pain (Mild 1-3) and fever Last Admin: 09/21/16 02:03 Dose: 650 mg Acetaminophen/Codeine Phosphate (Tylenol With Codeine No.3 300mg/30mg) 1 tab PO Q4H PRN PRN Reason: Pain (moderate 4-6) Last Admin: 09/21/16 18:38 Dose: 1 tab Emollient Ointment (Lansinoh Hpa) 40 gm TOP ASDIRECTED PRN PRN Reason: sore nipples Oxytocin/Sodium Chloride (Pitocin In Ns 20 Units/1,000 Ml) 20 unit in 1,000 mls @ 6 mls/hr IV TITRATE [place]; 2 MUNITS/MIN PRN Reason: Protocol Last Titration: 09/20/16 23:18 Dose: 150 mls/hr Lactated Ringer's (Ringers, Lactated) 1,000 mls @ 150 mls/hr IV ASDIRECTED [place] Last Admin: 09/20/16 21:05 Dose: 150 mls/hr Ibuprofen (Motrin) 600 mg PO Q6H PRN PRN Reason: mild pain or fever Last Admin: 09/21/16 23:31 Dose: 600 mg Prenat Multivit/Steaming Machine Operator/Iron/Folic Ac ( Plus Iron) 1 each PO DAILY [place] Last Admin: 09/21/16 11:05 Dose: 1 each Sodium Chloride (Saline Flush) 10 ml FLUSH ASDIRECTED PRN PRN Reason: Keep Vein Open Discontinued Medications Diphtheria/Tetanus/Acell Pertussis (Adacel) 0.5 ml IM .ONCE ONE Stop: 09/21/16 14:01 Last Admin: 09/21/16 13:08 Dose: 0.5 ml Fentanyl (Sublimaze) 100 mcg IVPUSH Q1H PRN PRN Reason: Pain (moderate 4-6) Last Admin: 09/20/16 20:27 Dose: 100 mcg Lactated Ringer's (Ringers, Lactated) 1,000 mls @ 999 mls/hr IV BOLUS ONE Stop: 09/20/16 21:05 Last Admin: 09/20/16 21:05 Dose: 999 mls/hr Ropivacaine (Naropin 0.2%) Confirm Administered Dose 100 mls @ as directed .ROUTE .STK-MED ONE Stop: 09/20/16 21:37 Lidocaine HCl (Xylocaine 1%) Confirm Administered Dose 100 ml .ROUTE .STK-MED ONE Stop: 09/20/16 22:04 Last Admin: 09/21/16 10:49 Dose: Not Given Mineral Oil (Muri-Lube) Confirm Administered Dose 10 ml .ROUTE .STK-MED ONE Stop: 09/20/16 22:03 Last Admin: 09/21/16 10:48 Dose: Not Given Misoprostol (Cytotec) 50 mcg PO ONETIME ONE Stop: 09/20/16 16:01 Last Admin: 09/20/16 16:28 Dose: 50 mcg Naloxone HCl (Narcan) Confirm Administered Dose 0.4 mg .ROUTE .STK-MED ONE Stop: 09/20/16 22:03 Last Admin: 09/21/16 10:49 Dose: Not Given - Interaction Infant Disposition, : at Bedside Interaction: Holding Infant Feeding: Attempted ; Nursed Fair/Poor, Bottle Fed Support Person: Significant Other, Friend, Other (see below) - Recovery Exam Fundal Tone: Firm Fundal Level: At Umbilicus Fundal Placement: Midline Lochia Amount: Moderate Lochia Color: Rubra/Red Perineum Description: Intact, Minimal Bruising/Swelling Episiotomy/Laceration: None Bladder Status: Voiding Urinary Elimination: Voided Other Urinary Elimination, : after hayes was discontinued - Exam General: alert, oriented HEENT: Pupils equal Neck: supple Lungs: Clear to auscultation, Normal respiratory effort Cardiovascular: regular rate, regular rhythm Abdomen: bowel sounds present, soft, no tenderness, no distension Extremities: no edema Skin: warm, dry, intact Neurological: no new focal deficit Psy/Mental Status: alert, normal affect, normal mood - Problem List & Annotations (1) Normal vaginal delivery SNOMED Code(s): 41316415 Code(s): O80 - ENCOUNTER FOR FULL-TERM UNCOMPLICATED DELIVERY Status: Acute Current Visit: Yes (2) () SNOMED Code(s): 310463954 Code(s): Z78.9 - OTHER SPECIFIED HEALTH STATUS Status: Acute Current Visit: Yes (3) SNOMED Code(s): 55376113 Code(s): Z33.1 - STATE, INCIDENTAL Status: Acute Current Visit: Yes Qualifiers: Weeks of gestation: 39 weeks Qualified Code(s): Z3A.39 - 39 weeks gestation of (4) SROM (spontaneous rupture of membranes) SNOMED Code(s): 723069932 Code(s): KKI8089 - Status: Acute Current Visit: Yes - Problem List Review Problem List Initiated/Reviewed/Updated: Yes - Assessment Assessment:: 09/20/16 31 year old G4 now P4 without complications augmented contractions with pitocin for dysfunctional labor pattern after SROM at home. 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 mild contractions Will use oral Misoprostol to augment labor Plan for vaginal delivery Labs: GBS neg, HIV neg, Rubella Immune, ABO O pos, HB 11.8 and plt 186 Pain management per patient request 09/20/16 routine cares 24-48 hour stay encouraged breast feeding CBC in am 09/21/2016 Routine cares Encourage and support Pain medication per patients request Will plan discharge 24-48 hours 09/22/2016 Continue Routine cares Continue to support and encourage Discharge today To [facility] for six week check
[2016-09-22] MEDS: Ibuprofen 600 MG Tab PO PRN (08:45)
[2016-09-22] MEDS: Prenatal Multivitamin with Calcium/Folic Acid/Iron Tab PO SCH (08:46)
== END 2016-09-22 12:00 | disposition home or self-care (01) | DRG 775 ==
LOC: JP.OBCHECK 14:06 → JP.OB 15:44 → JP.MS 22:43 → OBSVTOIN 22:43 → JP.OB 22:43
PROVIDERS: ADMIT Nurse Practitioner Family; ATTEND Nurse Practitioner Family
PROC: 10E0XZZ Delivery of Products of Conception, External Approach (ICD-10-PCS; principal; 2016-09-20)
PROC: 00HU33Z Insertion of Infusion Device into Spinal Canal, Percutaneous Approach (ICD-10-PCS; 2016-09-20)
DX: O75.89 Other specified complications of labor and delivery (principal); Z3A.39 39 weeks gestation of pregnancy; Z37.0 Single live birth
CPT/HCPCS: 36415; 80305; 81001; 84112; 85025; 90715; 99211; A9270-GY; J2590; J2795; J3010; J7120

== ENCOUNTER 2017-10-07 20:20 | Emergency (ER) | payer SELFPAY ==
[2017-10-07 20:44] VITALS: BP 131/78
[2017-10-07] MEDS ORDERED: Ketorolac 60 MG/2 ML SDV IM ONE (21:03)
--- NOTE | 2017-10-07 21:08 | EDM.PDOC ---
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 Has not been to the clinic. Is not sure about fever. No self tx other than Tylenol that is not helping. Onset: Gradual Onset Date: 09/23/17 Duration: Week(s):, Constant Location: Reports: Face (nose and sinuses) Quality: Reports: Pressure Severity: Moderate Improves with: Reports: None Worsens with: Reports: None Context: Reports: Other (unknown) Associated Symptoms: Reports: Headaches. 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 Denies: Fever, Chills HEENT: Reports: Rhinitis, Sinus Problem. Denies: Ear Pain, Throat Pain Respiratory: Reports: No Symptoms Cardiovascular: Reports: No Symptoms GI/Abdominal: Reports: No Symptoms : Reports: No Symptoms Musculoskeletal: Reports: No Symptoms Skin: Reports: No Symptoms Neurological: Reports: No Symptoms - Physical Exam Exam: See Below Exam Limited By: No Limitations General Appearance: Alert, WD/WN, No Apparent Distress Eye Exam: Bilateral Eye: Normal Inspection Ears: Normal External Exam, Normal Canal, Hearing Grossly Normal, Normal TMs Nose: No Blood, Nasal Swelling, Nasal Drainage, Clear Rhinorrhea, Other (pale nasal mucosa). No: Normal Mucosa, Nasal Tenderness, Nasal Deformity, Nasal Flaring Throat/Mouth: Normal Inspection, Normal Lips, Normal Oropharynx, Normal Voice, No Airway Compromise Head Exam: Atraumatic, Normocephalic Neck: Normal Inspection, Supple Respiratory/Chest: No Respiratory Distress, Lungs Clear, Normal Breath Sounds, No Accessory Muscle Use Cardiovascular: Regular Rate, Rhythm Neuro Exam (Abbreviated): Alert, Oriented, CN II-XII Intact, No Motor/Sensory Deficits Skin Exam: Warm, Dry, Intact, Normal Color, No Rash Course - Vital Signs Last Recorded V/S: Last Vital Signs Temp 37.6 C 10/07/17 20:43 Pulse 97 10/07/17 20:43 Resp 16 10/07/17 20:43 BP 131/78 10/07/17 20:43 Pulse Ox 97 10/07/17 20:43 - Orders/Labs/Meds Orders: Active Orders 24 hr Category Date Time Status Ketorolac [Toradol] Med 10/07/17 21:03 Once 60 mg IM ONETIME ONE Departure - Departure Time of Disposition: 21:20 Disposition: Home, Self-Care 01 Condition: Good Clinical Impression: Allergic rhinitis Qualifiers: Allergic rhinitis trigger: unspecified Allergic rhinitis seasonality: seasonal Qualified Code(s): J30.2 - Other seasonal allergic rhinitis - Discharge Information Referrals: Audrey Judge CNM [Primary Care Provider] - - My Orders Last 24 Hours: My Active Orders 10/07/17 21:03 Ketorolac [Toradol] 60 mg IM ONETIME ONE - Assessment/Plan Last 24 Hours: My Active Orders 10/07/17 21:03 Ketorolac [Toradol] 60 mg IM ONETIME ONE
[2017-10-07] MEDS ORDERED: predniSONE 20 MG Tab PO ONE (21:10)
== END 2017-10-07 21:40 | disposition home or self-care (01) ==
LOC: JP.ED 20:20
DX: J30.2 Other seasonal allergic rhinitis (principal)
CPT/HCPCS: 96372; 99283; 99284; A9270; J1885

== ENCOUNTER 2020-10-22 07:03 | Inpatient (IN) | payer MEDICAID ==
[2020-10-22] MEDS ORDERED: Lactated Ringers 1,000 ML IV SCH (07:30)
[2020-10-22] MEDS ORDERED: Misoprostol 50 MCG (1/2 of 100 MCG) Tab VAG ONE (07:30)
[2020-10-22] MEDS ORDERED: Penicillin G Potassium 5 MILLUNITS in Sodium Chloride 0.9% 100 ML IV ONE (08:30)
--- NOTE | 2020-10-22 08:38 | PCM.LDHP ---
L&D History of Present Illness - General Date of Service: 10/22/20 (induction for GDM) Admit Problem/Dx: Patient Status Order with Admit Dx/Problem 10/22/20 08:11 Patient Status [ADT] Routine Admission Diagnosis/Problem Admission Diagnosis/Problem Source of Information: Patient History Limitations: Reports: No Limitations - History of Present Illness Introduction:: 35 year old who is 39 weeks with GDM, with fair control. BPP this morning 02/20 and reactive NST Covid neg HIV neg GBS positive, will treat ABO O pos Timing/Duration: Reports: intermittent Severity: Mild Improves with: Reports: None Worsens with: Reports: None - Related Data Allergies/Adverse Reactions: Allergies Allergy/AdvReac Type Severity Reaction Status Date / Time No Known Allergies Allergy Verified 10/07/17 21:04 Home Medications: Home Meds Fluticasone Propionate [Flonase] 16 gm NASBOTH BID #1 bottle 10/07/17 [Rx] Past Medical History - Past Health History Medical/Surgical History: Denies Medical/Surgical History Respiratory History: Reports: Asthma, Other (See Below) Other Respiratory History: no current medications for this [employer] History: Reports: : 7 Para: 4 LMP (Approximate): (GUSTAVO 10/29/20) - Infectious Disease History Infectious Disease History: Reports: None Social & Family History - Family History Family Medical History: No Pertinent Family History - Caffeine Use Caffeine Use: Reports: None H&P Review of Systems - Review of Systems: Review Of Systems: See Below General: Reports: No Symptoms HEENT: Reports: No Symptoms Pulmonary: Reports: No Symptoms Cardiovascular: Reports: No Symptoms Gastrointestinal: Reports: No Symptoms Genitourinary: Reports: No Symptoms Musculoskeletal: Reports: No Symptoms Skin: Reports: No Symptoms Psychiatric: Reports: No Symptoms Neurological: Reports: No Symptoms Hematologic/Lymphatic: Reports: No Symptoms Immunologic: Reports: No Symptoms L&D Exam - Exam Exam: See Below - Vital Signs Weight: 168 lb - OB Specific Contraction Intensity: Mild Movement: Active Heart Tones: Present Heart Tones per Min: 140 Heart Rate (FHR) Variability: Moderate (6-25 bmp) Presentation: Vertex Estimated Weight: 7 pounds - Tesfaye Score Tesfaye Score Cervix Position: Posterior Tesfaye Score Consistency: Soft Tesfaye Score Effacement: 51-70% Tesfaye Score Dilation: 1-2 cm Tesfaye Score Infant's Station: -2 Tesfaye Score Total: 6 - Exam General: Alert, Oriented HEENT: PERRLA Neck: Supple Lungs: Normal Respiratory Effort Cardiovascular: Regular Rate GI/Abdominal Exam: Soft, Non-Tender Rectal Exam: Normal Exam Genitourinary: Normal external exam, Cervical dilitation, Enlarged uterus Back Exam: Normal Inspection, Full Range of Motion Extremities: No Pedal Edema, Normal Capillary Refill Skin: Warm Neurological: Cranial Nerves Intact Psychiatric: Alert, Normal Affect - Patient Data Lab Results Last 24 hrs: Laboratory Results - last 24 hr 10/22/20 10/22/20 Range/Units 06:21 06:21 Urine Color Yellow (YELLOW) Urine Appearance Slightly cloudy A (CLEAR) Urine pH 7.0 (5.0-8.0) Ur Specific [place] 1.025 (1.008-1.030) Urine Protein 100 H (NEGATIVE) mg/dL Urine Glucose (UA) Negative (NEGATIVE) mg/dL Urine Ketones Negative (NEGATIVE) mg/dL Urine Occult Blood Negative (NEGATIVE) Urine Nitrite Negative (NEGATIVE) Urine Bilirubin Negative (NEGATIVE) Urine Urobilinogen 0.2 (0.2-1.0) EU/dL Ur Leukocyte Esterase Small H (NEGATIVE) Urine RBC Not seen (0-5) Urine WBC 5-10 H (0-5) Ur Epithelial Cells Many Amorphous Sediment Not seen Urine Bacteria Many Urine Mucus Not seen Urine Opiates Screen Negative (NEGATIVE) Ur Oxycodone Screen Negative (NEGATIVE) Urine Methadone Screen Negative (NEGATIVE) Ur Propoxyphene Screen Negative (NEGATIVE) Ur Barbiturates Screen Negative (NEGATIVE) Ur Tricyclics Screen Negative (NEGATIVE) Ur Phencyclidine Scrn Negative (NEGATIVE) Ur Amphetamine Screen Negative (NEGATIVE) U Methamphetamines Scrn Negative (NEGATIVE) Urine MDMA Screen Negative (NEGATIVE) U Benzodiazepines Scrn Negative (NEGATIVE) U Cocaine Metab Screen Negative (NEGATIVE) U Marijuana (THC) Screen Negative (NEGATIVE) - Problem List (1) Kinyarwanda speaking patient SNOMED Code(s): 969396376 ICD Code: CYZ8174 - Status: Acute Current Visit: Yes (2) Positive GBS test SNOMED Code(s): 867125753, 021573828 ICD Code: B95.1 - STREPTOCOCCUS, GROUP B, CAUSING DISEASES CLASSD ELSWHR Status: Acute Current Visit: Yes (3) SNOMED Code(s): 23331830 ICD Code: Z34.90 - ENCNTR FOR SUPRVSN OF NORMAL , UNSP, UNSP TRIMESTER Status: Acute Current Visit: Yes Qualifiers: Weeks of gestation: 39 weeks Qualified Code(s): Z3A.39 - 39 weeks gestation of (4) GDM, class A1 SNOMED Code(s): 12820281 ICD Code: O24.410 - GESTATIONAL DIABETES MELLITUS IN , DIET CONTROLLED Status: Acute Current Visit: Yes Problem List Initiated/Reviewed/Updated: Yes Orders Last 24hrs: Active Orders 24 hr Category Date Time Status Patient Status [ADT] Routine ADT 10/22/20 08:11 Active Antiembolic Devices [RC] .Routine Care 10/22/20 08:13 Active Heart Tones [RC] CONTINUOUS Care 10/22/20 08:13 Active May Shower [RC] ASDIRECTED Care 10/22/20 08:11 Active Notify Provider [RC] PRN Care 10/22/20 08:11 Active Up ad Samantha [RC] ASDIRECTED Care 10/22/20 08:11 Active VTE/DVT Education [RC] Click to Edit Care 10/22/20 08:13 Active Vital Signs [RC] PER UNIT ROUTINE Care 10/22/20 08:11 Active Consistent Carbohydrate Diet [DIET] Diet 10/22/20 Lunch Active BPP wo NST [US] Routine Exams 10/22/20 07:00 Taken CBC W/O DIFF,HEMOGRAM [HEME] Routine Lab 10/22/20 08:22 Received COMPREHENSIVE METABOLIC PN,CMP [CHEM] Routine Lab 10/22/20 08:22 Received Lactated Ringers [Ringers, Lactated] 1,000 ml Med 10/22/20 07:30 Active IV ASDIRECTED Oxytocin/Normal Saline [Pitocin in NS 20 Units/1,000 ML Med 10/22/20 08:14 Active ] 20 unit in 1,000 ml IV ASDIRECTED Penicillin G Potassium [Pfizerpen] 2.5 millunits Med 10/22/20 12:30 Active Sodium Chloride 0.9% [Normal Saline] 50 ml IV Q4H Penicillin G Potassium [Pfizerpen] 5 millunits Med 10/22/20 08:30 Active Sodium Chloride 0.9% [Normal Saline] 100 ml IV ONETIME DVT/VTE Prophylaxis Reflex [OM.PC] Routine Oth 10/22/20 08:11 Ordered Nonstress Test [WOMSER] Routine Oth 10/22/20 08:11 Ordered Resuscitation Status Routine Resus Stat 10/22/20 08:11 Ordered Medication Orders Lactated Ringer's (Ringers, Lactated) 1,000 mls @ 125 mls/hr IV ASDIRECTED [place] Oxytocin/Sodium Chloride (Pitocin In Ns 20 Units/1,000 Ml) 20 unit in 1,000 mls @ 999 mls/hr IV ASDIRECTED PRN; Protocol PRN Reason: AFTER DELIVERY Penicillin G Potassium 5 (millunits/ Sodium Chloride) 100 mls @ 200 mls/hr IV ONETIME ONE Stop: 10/22/20 08:59 Penicillin G Potassium 2.5 (millunits/ Sodium Chloride) 50 mls @ 100 mls/hr IV Q4H [facility] Assessment/Plan Comment:: 10/22/20 39 week IUP with GDM, fair control BPP8/8, NST reactive induction for GDM Plan: Miso 50 mcg this morning reassess at noon epidural later for pain control plan for vaginal delivery
--- NOTE | 2020-10-22 09:46 | US ---
BPP wo NST INDICATION: induction of labor COMPARISON: 10/01/2020 FINDINGS: Single live IUP in: Cephalic position. heart rate: 160 BPM. Biophysical profile score: 8/8. BALDO: 12.8 cm. IMPRESSION: Normal biophysical profile score of 8/8.
[2020-10-22] MEDS ORDERED: Penicillin G Potassium 2.5 MILLUNITS in Sodium Chloride 0.9% 50 ML IV SCH (12:30)
[2020-10-22] MEDS ORDERED: ePHEDrine 50 MG/ML SDV IVPUSH PRN (13:20)
[2020-10-22] MEDS ORDERED: Lactated Ringers 1,000 ML IV ONE (13:20)
--- NOTE | 2020-10-22 13:20 | PCM.PNLD ---
Labor Progress Note - VS & Meds Vital Signs: Last Vital Signs Temp 98.5 F 10/22/20 09:30 Pulse 61 10/22/20 09:30 Resp 18 10/22/20 09:30 BP 133/77 10/22/20 09:30 Pulse Ox 99 10/22/20 09:30 Active Medications: Current Medications Lactated Ringer's (Ringers, Lactated) 1,000 mls @ 125 mls/hr IV ASDIRECTED [place] Oxytocin/Sodium Chloride (Pitocin In Ns 20 Units/1,000 Ml) 20 unit in 1,000 mls @ 999 mls/hr IV ASDIRECTED PRN; Protocol PRN Reason: AFTER DELIVERY Penicillin G Potassium 2.5 (millunits/ Sodium Chloride) 50 mls @ 100 mls/hr IV Q4H [facility] Last Admin: 10/22/20 12:06 Dose: 100 mls/hr Documented by: Discontinued Medications Penicillin G Potassium 5 (millunits/ Sodium Chloride) 100 mls @ 200 mls/hr IV ONETIME ONE Stop: 10/22/20 08:59 Last Admin: 10/22/20 09:09 Dose: 200 mls/hr Documented by: Misoprostol (Misoprostol 50 Mcg (1/2 Of 100 Mcg) Tab) 50 mcg VAG ONETIME ONE Stop: 10/22/20 07:31 Last Admin: 10/22/20 08:23 Dose: 50 mcg Documented by: - Uterine Contractions Uterine Monitoring Mode: External [place] Contraction Intensity: Mild - Monitoring Monitor Mode: Doppler/Auscultation Heart Rate (FHR) Baseline: 150 Heart Rate (FHR) Variability: Moderate (6-25 bmp) Accelerations: Present, 15x15 Decelerations: Variable Strip Review: Category II - Vaginal Exam Dilation (cm): 5 Effacement (Percent): 80 Station: 0 Cervical Position: Midposition Sterile Vaginal Exam Performed By: Audrey Judge Vaginal Exam Comment: rapid progression since 1145 am - Labor Progress (Free Text) Labor Progress: 5/80/0, requesting epidural cat two strip, baseline FHT 150, variable decels. Position change, o2 and fluid bolus Plan epidural discussion possibility of c section AROM after epidural
--- NOTE | 2020-10-22 14:31 | PCM.PNLD ---
Labor Progress Note - VS & Meds Vital Signs: Last Vital Signs Temp 98.5 F 10/22/20 09:30 Pulse 61 10/22/20 09:30 Resp 18 10/22/20 09:30 BP 133/77 10/22/20 09:30 Pulse Ox 99 10/22/20 09:30 Active Medications: Current Medications Ephedrine Sulfate (Ephedrine 50 Mg/Ml Sdv) 10 mg IVPUSH ASDIRECTED PRN PRN Reason: Hypotension Lactated Ringer's (Ringers, Lactated) 1,000 mls @ 125 mls/hr IV ASDIRECTED [place] Oxytocin/Sodium Chloride (Pitocin In Ns 20 Units/1,000 Ml) 20 unit in 1,000 mls @ 999 mls/hr IV ASDIRECTED PRN; Protocol PRN Reason: AFTER DELIVERY Penicillin G Potassium 2.5 (millunits/ Sodium Chloride) 50 mls @ 100 mls/hr IV Q4H [facility] Last Admin: 10/22/20 12:06 Dose: 100 mls/hr Documented by: Discontinued Medications Penicillin G Potassium 5 (millunits/ Sodium Chloride) 100 mls @ 200 mls/hr IV ONETIME ONE Stop: 10/22/20 08:59 Last Admin: 10/22/20 09:09 Dose: 200 mls/hr Documented by: Lactated Ringer's (Ringers, Lactated) 1,000 mls @ 999 mls/hr IV .BOLUS ONE Stop: 10/22/20 14:20 Misoprostol (Misoprostol 50 Mcg (1/2 Of 100 Mcg) Tab) 50 mcg VAG ONETIME ONE Stop: 10/22/20 07:31 Last Admin: 10/22/20 08:23 Dose: 50 mcg Documented by: - Uterine Contractions Uterine Monitoring Mode: External [place] Contraction Frequency (min): 2 Contraction Duration (sec): 40-70 Contraction Intensity: Moderate - Monitoring Monitor Mode: Doppler/Auscultation Heart Rate (FHR) Baseline: 150 Heart Rate (FHR) Variability: Moderate (6-25 bmp) Accelerations: Present, 15x15 Decelerations: Variable Strip Review: Category II - Vaginal Exam Dilation (cm): 6 Effacement (Percent): 80 Station: 0 Cervical Position: Anterior Sterile Vaginal Exam Performed By: Audrey Judge Vaginal Exam Comment: AROM, clear fluid - Labor Progress (Free Text) Labor Progress: epidural placed and she is comfortable, can feel contractions but not painful AROM large amount of clear fluid Strip shows occasional variable, good variability rate 150's
[2020-10-22] MEDS ORDERED: Hydrocortisone 2.5% Crm 30 GM Tube TOP PRN (15:32)
[2020-10-22] MEDS ORDERED: Benzocaine 20% Top Spray 56 GM Bottle TOP PRN (15:32)
[2020-10-22] MEDS ORDERED: Acetaminophen 325 MG Tab, 50 Tab Bulk Bottle PO PRN (15:32)
[2020-10-22] MEDS ORDERED: Witch Hazel Medicated Pads 100/Jar TOP PRN (15:32)
[2020-10-22] MEDS ORDERED: Lanolin 100% Cream 40 GM Tube TOP PRN (15:32)
[2020-10-22] MEDS ORDERED: Ibuprofen 200 MG Tab, 24 Tab Bulk Bottle PO PRN (15:32)
--- NOTE | 2020-10-22 15:33 | ANES ---
DATE OF SERVICE: 10/22/2020 INDICATION: Ms. Louis is a 35-year-old female patient, referred to the [facility] in labor and I was called by Dr. Audrey Judge to evaluate her for a labor epidural. She is approximately 5 cm, multipara, and risks and benefits of the procedure were explained through an site interpreter and she wished to proceed. TECHNIQUE: She was placed in a sitting position. Her back was prepped x3 with Betadine, 1% lidocaine skin local was used. The epidural was placed at L3-4 using a 17-gauge Tuohy needle and loss of resistance technique. The epidural had very good feel throughout, and the epidural space was easily identified. There was negative CSF, negative blood, negative paresthesias noted. Therefore, catheter was threaded to 15 cm at the skin. There was negative CSF, negative blood, and negative paresthesias noted in the catheter as well. A 1.5% lidocaine test dose was given, and this test dose was negative and it had epinephrine in it. The catheter was then secured with Tegaderm and tape, and the patient was placed in a supine position. A 0.2% ropivacaine bolus of 10 mL was given. The bolus had good relief and her vital signs remained stable. Therefore, 0.2% ropivacaine drip was started at 12 mL/h. The patient tolerated procedure very nicely. Her vital signs remained stable throughout the procedure, and nurse was with me for the entire procedure. There were no anesthesia complications noted, and we will continue to monitor her throughout her labor and delivery. Blayne Ray CRNA /[id number]
--- NOTE | 2020-10-22 15:50 | PCM.DEL ---
L & D Note - General Info Date of Service: 10/22/20 (vaginal delivery) Mother's Due Date: 10/29/20 - Delivery Note Labor: Spontaneous Cervical Ripening Method: Misoprostil Delivery Outcome: Livebirth Infant Delivery Method: Spontaneous Vaginal Delivery-Single Delivery Mode: Spontaneous Presentation: Vertex Nuchal Cord: None Anesthesia Type: Epidural Amniotic Fluid Description: Clear Episiotomy Type: None Laceration: None Placenta: Intact, Spontaneous Cord: 3 Vessels Estimated Blood Loss: 50 Resuscitation Needed: No [place]: Stimulated, Warmed, [place] Used Provider: Audrey Judge Score 1 min: 8 Score 5 min: 9 Second Stage Interventions: Reports: Second Nurse Reviewed Heart Tones, Encouragement Given, Pushing Effectively Delivery Comments (Free Text/Narrative):: 10/22/20 delivery note: This 35 year old G7 now P5 delivered via at 1511 over an intact perineum a viable male infant in STEFAN position. [place] was placed on mother's abdomen where he was dried and stimulated. He cried spontaneously. Apgars of 8 & 9 color and tone at one minute and color only at 5 minutes. Three vessel cord. Delayed cord clamping and active management of the third stage were employed. The placenta was expressed spontaneously intact. No lacerations to the perineum, vagina, rectum or vagina were found. EBL: 50cc weight 6-13, normal exam Mother and baby to post in stable condition. first stage 9995-6068 Second stage 8552-7930 Third stage 6898-1411 Induction Criteria - Tesfaye Score Tesfaye Score Dilation: 1-2 cm Tesfaye Score 's Station: -1 ,0 Tesfaye Score Consistency: Soft Tesfaye Score Cervix Position: Midposition Tesfaye Score Presenting Part: Reports: Cephalic - Induction Gestational Age >/= 39 wks: Yes Estimated Pelvis: Reports: Adequate Reassuring Monitoring Strip: Yes Absence of Tachy Systole: Yes - General Info Date of Service: 10/22/20 (10/22/20) Admission Dx/Problem (Free Text): Patient Status Order with Admit Dx/Problem 10/22/20 08:11 Patient Status [ADT] Routine Admission Diagnosis/Problem Admission Diagnosis/Problem Functional Status: Reports: Pain Controlled - Review of Systems General: Reports: No Symptoms HEENT: Reports: No Symptoms Pulmonary: Reports: No Symptoms Cardiovascular: Reports: No Symptoms Gastrointestinal: Reports: No Symptoms Genitourinary: Reports: No Symptoms Musculoskeletal: Reports: No Symptoms Skin: Reports: No Symptoms Neurological: Reports: No Symptoms Psychiatric: Reports: No Symptoms - Patient Data Vitals - Most Recent: Last Vital Signs Temp 98.5 F 10/22/20 09:30 Pulse 61 10/22/20 09:30 Resp 18 10/22/20 09:30 BP 133/77 10/22/20 09:30 Pulse Ox 99 10/22/20 09:30 Weight - Most Recent: 168 lb Lab Results Last 24 Hours: Laboratory Results - last 24 hr 10/22/20 10/22/20 10/22/20 Range/Units 06:21 06:21 08:22 WBC (4.5-11.0) K/uL RBC (3.30-5.50) M/uL Hgb (12.0-15.0) g/dL Hct (36.0-48.0) % MCV (80-98) fL MCH (27-31) pg MCHC (32-36) % Plt Count (150-400) K/uL Sodium 141 (140-148) mmol/L Potassium 3.9 (3.6-5.2) mmol/L Chloride 107 (100-108) mmol/L Carbon Dioxide 20 L (21-32) mmol/L Anion Gap 17.9 H (5.0-14.0) mmol/L BUN 12 (7-18) mg/dL Creatinine 0.7 (0.6-1.0) mg/dL Est Cr Clr Drug Dosing 84.65 mL/min Estimated GFR (MDRD) > 60 (>60) Glucose 100 (74-106) mg/dL POC Glucose (74-106) MG/DL Calcium 8.7 (8.5-10.1) mg/dL Total Bilirubin 0.2 (0.2-1.0) mg/dL AST 81 H (15-37) U/L ALT 97 H (12-78) U/L Alkaline Phosphatase 296 H (46-116) U/L Total Protein 6.3 L (6.4-8.2) g/dL Albumin 2.2 L (3.4-5.0) g/dL Globulin 4.1 H (2.3-3.5) g/dL Albumin/Globulin Ratio 0.5 L (1.2-2.2) Urine Color Yellow (YELLOW) Urine Appearance Slightly cloudy A (CLEAR) Urine pH 7.0 (5.0-8.0) Ur Specific [place] 1.025 (1.008-1.030) Urine Protein 100 H (NEGATIVE) mg/dL Urine Glucose (UA) Negative (NEGATIVE) mg/dL Urine Ketones Negative (NEGATIVE) mg/dL Urine Occult Blood Negative (NEGATIVE) Urine Nitrite Negative (NEGATIVE) Urine Bilirubin Negative (NEGATIVE) Urine Urobilinogen 0.2 (0.2-1.0) EU/dL Ur Leukocyte Esterase Small H (NEGATIVE) Urine RBC Not seen (0-5) Urine WBC 5-10 H (0-5) Ur Epithelial Cells Many Amorphous Sediment Not seen Urine Bacteria Many Urine Mucus Not seen Urine Opiates Screen Negative (NEGATIVE) Ur Oxycodone Screen Negative (NEGATIVE) Urine Methadone Screen Negative (NEGATIVE) Ur Propoxyphene Screen Negative (NEGATIVE) Ur Barbiturates Screen Negative (NEGATIVE) Ur Tricyclics Screen Negative (NEGATIVE) Ur Phencyclidine Scrn Negative (NEGATIVE) Ur Amphetamine Screen Negative (NEGATIVE) U Methamphetamines Scrn Negative (NEGATIVE) Urine MDMA Screen Negative (NEGATIVE) U Benzodiazepines Scrn Negative (NEGATIVE) U Cocaine Metab Screen Negative (NEGATIVE) U Marijuana (THC) Screen Negative (NEGATIVE) 10/22/20 10/22/20 Range/Units 08:22 12:17 WBC 5.7 (4.5-11.0) K/uL RBC 4.14 (3.30-5.50) M/uL Hgb 11.8 L (12.0-15.0) g/dL Hct 35.5 L (36.0-48.0) % MCV 86 (80-98) fL MCH 29 (27-31) pg MCHC 33 (32-36) % Plt Count 158 (150-400) K/uL Sodium (140-148) mmol/L Potassium (3.6-5.2) mmol/L Chloride (100-108) mmol/L Carbon Dioxide (21-32) mmol/L Anion Gap (5.0-14.0) mmol/L BUN (7-18) mg/dL Creatinine (0.6-1.0) mg/dL Est Cr Clr Drug Dosing mL/min Estimated GFR (MDRD) (>60) Glucose (74-106) mg/dL POC Glucose 82 (74-106) MG/DL Calcium (8.5-10.1) mg/dL Total Bilirubin (0.2-1.0) mg/dL AST (15-37) U/L ALT (12-78) U/L Alkaline Phosphatase (46-116) U/L Total Protein (6.4-8.2) g/dL Albumin (3.4-5.0) g/dL Globulin (2.3-3.5) g/dL Albumin/Globulin Ratio (1.2-2.2) Urine Color (YELLOW) Urine Appearance (CLEAR) Urine pH (5.0-8.0) Ur Specific [place] (1.008-1.030) Urine Protein (NEGATIVE) mg/dL Urine Glucose (UA) (NEGATIVE) mg/dL Urine Ketones (NEGATIVE) mg/dL Urine Occult Blood (NEGATIVE) Urine Nitrite (NEGATIVE) Urine Bilirubin (NEGATIVE) Urine Urobilinogen (0.2-1.0) EU/dL Ur Leukocyte Esterase (NEGATIVE) Urine RBC (0-5) Urine WBC (0-5) Ur Epithelial Cells Amorphous Sediment Urine Bacteria Urine Mucus Urine Opiates Screen (NEGATIVE) Ur Oxycodone Screen (NEGATIVE) Urine Methadone Screen (NEGATIVE) Ur Propoxyphene Screen (NEGATIVE) Ur Barbiturates Screen (NEGATIVE) Ur Tricyclics Screen (NEGATIVE) Ur Phencyclidine Scrn (NEGATIVE) Ur Amphetamine Screen (NEGATIVE) U Methamphetamines Scrn (NEGATIVE) Urine MDMA Screen (NEGATIVE) U Benzodiazepines Scrn (NEGATIVE) U Cocaine Metab Screen (NEGATIVE) U Marijuana (THC) Screen (NEGATIVE) Med Orders - Current: Current Medications Acetaminophen (Acetaminophen 325 Mg Tab, 50 Tab Bulk Bottle) 0 mg PO Q4H PRN PRN Reason: Pain Benzocaine (Benzocaine 20% Top [place] 56 Gm Bottle) 0 gm TOP Q4H ONE Stop: 10/22/20 15:33 Emollient Ointment (Lanolin 100% Cream 40 Gm Tube) 1 gm TOP ASDIRECTED ONE Stop: 10/22/20 15:33 Ephedrine Sulfate (Ephedrine 50 Mg/Ml Sdv) 10 mg IVPUSH ASDIRECTED PRN PRN Reason: Hypotension Hydrocortisone (Hydrocortisone 2.5% Crm 30 Gm Tube) 1 gm TOP ASDIRECTED PRN PRN Reason: Itching Lactated Ringer's (Ringers, Lactated) 1,000 mls @ 125 mls/hr IV ASDIRECTED [place] Oxytocin/Sodium Chloride (Pitocin In Ns 20 Units/1,000 Ml) 20 unit in 1,000 mls @ 999 mls/hr IV ASDIRECTED PRN; Protocol PRN Reason: AFTER DELIVERY Penicillin G Potassium 2.5 (millunits/ Sodium Chloride) 50 mls @ 100 mls/hr IV Q4H [facility] Last Admin: 10/22/20 12:06 Dose: 100 mls/hr Documented by: Ibuprofen (Ibuprofen 200 Mg Tab, 24 Tab Bulk Bottle) 600 mg PO Q6H PRN PRN Reason: Pain Witch Cait (Witch Cait Medicated Pads 100/Jar) 1 pad TOP ASDIRECTED ONE Stop: 10/22/20 15:33 Discontinued Medications Penicillin G Potassium 5 (millunits/ Sodium Chloride) 100 mls @ 200 mls/hr IV ONETIME ONE Stop: 10/22/20 08:59 Last Admin: 10/22/20 09:09 Dose: 200 mls/hr Documented by: Lactated Ringer's (Ringers, Lactated) 1,000 mls @ 999 mls/hr IV .BOLUS ONE Stop: 10/22/20 14:20 Misoprostol (Misoprostol 50 Mcg (1/2 Of 100 Mcg) Tab) 50 mcg VAG ONETIME ONE Stop: 10/22/20 07:31 Last Admin: 10/22/20 08:23 Dose: 50 mcg Documented by: - Exam General: Alert, Oriented HEENT: Pupils Equal, Pupils Reactive, EOMI, Mucous Membr. Moist/[place] Neck: Supple Lungs: Clear to Auscultation, Normal Respiratory Effort Cardiovascular: Regular Rate, Regular Rhythm GI/Abdominal Exam: Normal Bowel Sounds, Soft, Non-Tender, No Organomegaly, No Distention, No Abnormal Bruit, No Mass, Pelvis Stable (Female) Exam: Normal External Exam, Cervical Dilatation, Enlarged Uterus, Vaginal Bleeding Back Exam: Normal Inspection, Full Range of Motion Extremities: Normal Inspection, Normal Range of Motion, Non-Tender, No Pedal Edema, Normal Capillary Refill Skin: Warm, Dry, Intact Wound/Incisions: Healing Well Neurological: No New Focal Deficit Psy/Mental Status: Alert, Normal Affect, Normal Mood - Problem List & Annotations (1) Latvian speaking patient SNOMED Code(s): 915499495 Code(s): CDU5771 - Status: Acute Current Visit: Yes (2) Positive GBS test SNOMED Code(s): 650025865, 402585108 Code(s): B95.1 - STREPTOCOCCUS, GROUP B, CAUSING DISEASES CLASSD ELSWHR Status: Acute Current Visit: Yes (3) SNOMED Code(s): 64488110 Code(s): Z34.90 - ENCNTR FOR SUPRVSN OF NORMAL , UNSP, UNSP TRIMESTER Status: Acute Current Visit: Yes Qualifiers: Weeks of gestation: 39 weeks Qualified Code(s): Z3A.39 - 39 weeks gestation of (4) GDM, class A1 SNOMED Code(s): 00723228 Code(s): O24.410 - GESTATIONAL DIABETES MELLITUS IN , DIET CONTROLLED Status: Acute Current Visit: Yes (5) Vaginal delivery SNOMED Code(s): 446513038 Code(s): O80 - ENCOUNTER FOR FULL-TERM UNCOMPLICATED DELIVERY Status: Acute Current Visit: Yes (6) Acute fatty liver of in third trimester SNOMED Code(s): 357477452 Code(s): O26.613 - LIVER AND BILIARY TRACT DISORD IN , THIRD TRIMESTER; K76.0 - FATTY (CHANGE OF) LIVER, NOT ELSEWHERE CLASSIFIED Status: Acute Current Visit: Yes - Problem List Review Problem List Initiated/Reviewed/Updated: Yes - My Orders Last 24 Hours: My Active Orders 10/22/20 07:30 Lactated Ringers [Ringers, Lactated] 1,000 ml IV ASDIRECTED 10/22/20 08:11 May Shower [RC] ASDIRECTED Notify Provider [RC] PRN Up ad Samantha [RC] ASDIRECTED Vital Signs [RC] PER UNIT ROUTINE DVT/VTE Prophylaxis Reflex [OM.PC] Routine Nonstress Test [WOMSER] Routine Resuscitation Status Routine 10/22/20 08:13 Antiembolic Devices [RC] .Routine Heart Tones [RC] CONTINUOUS VTE/DVT Education [RC] Click to Edit 10/22/20 08:14 Oxytocin/Normal Saline [Pitocin in NS 20 Units/1,000 ML] 20 unit in 1,000 ml IV ASDIRECTED 10/22/20 11:22 POC Glucose [Blood Glucose Check, Bedside] [RC] Q4HR 10/22/20 Lunch Consistent Carbohydrate Diet [DIET] 10/22/20 12:30 Penicillin G Potassium [Pfizerpen] 2.5 millunits Sodium Chloride 0.9% [Normal Saline] 50 ml IV Q4H 10/22/20 13:20 Communication Order [RC] ASDIRECTED Local Anesthetic Infusion Pump [RC] ASDIRECTED PCEA Epidural [RC] ASDIRECTED PCEA Epidural [RC] ASDIRECTED Urinary Catheter Assessment [RC] ASDIRECTED ePHEDrine [ePHEDrine sulfate] 10 mg IVPUSH ASDIRECTED PRN Epidural Catheter Management [OM.PC] Urgent 10/22/20 13:30 Insert Urinary Catheter [OM.PC] ASDIRECTED 10/22/20 15:32 Acetaminophen [Tylenol Bulk Bottle] See Dose Instructions PO Q4H PRN Benzocaine [[id number] 20% [place]] See Dose Instructions TOP Q4H ONE Hydrocortisone [Proctozone-HC 2.5% Crm] 1 gm TOP ASDIRECTED PRN Ibuprofen [Motrin Bulk Bottle] 600 mg PO Q6H PRN Lanolin [Lansinoh HPA] 1 gm TOP ASDIRECTED ONE witch Cait [Tucks] 1 pad TOP ASDIRECTED ONE Assess Uterine Involution [WOMSER] Per Unit Routine 10/22/20 15:33 Patient Status [ADT] Routine Vital Signs [RC] PFP Perineal Care [OM.PC] Per Unit Routine Peripheral IV Discontinue [OM.PC] Routine 10/22/20 16:08 GLUCOSE POC LAB TO COLLECT JPM [POC] Q4H 10/22/20 20:08 GLUCOSE POC LAB TO COLLECT JPM [POC] Q4H 10/23/20 05:11 CBC W/O DIFF,HEMOGRAM [HEME] AM - Assessment Assessment:: 10/22/20 35 year old G7 now P5 who is 39 weeks gestation delivered via without complications male infant, - Plan Plan:: 10/22/20 39 week IUP with GDM, fair control BPP8/8, NST reactive induction for GDM Plan: Miso 50 mcg this morning reassess at noon epidural later for pain control plan for vaginal delivery 10/22/20 routine post cares CBC in am GBS position 48 hour stay, Sunday discharge Support
--- NOTE | 2020-10-23 10:17 | PCM.PNPP ---
- General Info Date of Service: 10/23/20 Functional Status: Reports: Pain Controlled - Review of Systems General: Reports: No Symptoms HEENT: Reports: No Symptoms Pulmonary: Reports: No Symptoms Cardiovascular: Reports: No Symptoms Gastrointestinal: Reports: No Symptoms Genitourinary: Reports: No Symptoms Musculoskeletal: Reports: No Symptoms Skin: Reports: No Symptoms Neurological: Reports: No Symptoms Psychiatric: Reports: No Symptoms - General Info Date of Service: 10/23/20 - Patient Data Vital Signs - Most Recent: Last Vital Signs Temp 96.6 F L 10/23/20 08:36 Pulse 95 10/23/20 08:36 Resp 18 10/23/20 08:36 BP 127/71 10/23/20 08:36 Pulse Ox 98 10/23/20 08:36 Weight - Most Recent: 168 lb I&O - Last 24 Hours: Intake & Output 10/22/20 10/23/20 10/23/20 22:59 06:59 14:59 Intake Total 2500 Output Total 800 Balance 1700 Lab Results - Last 24 Hours: Laboratory Results - last 24 hr 10/22/20 10/22/20 10/22/20 Range/Units 12:17 16:08 17:45 WBC (4.5-11.0) K/uL RBC (3.30-5.50) M/uL Hgb (12.0-15.0) g/dL Hct (36.0-48.0) % MCV (80-98) fL MCH (27-31) pg MCHC (32-36) % Plt Count (150-400) K/uL POC Glucose 82 69 L 116 H (74-106) MG/DL 10/23/20 Range/Units 04:10 WBC 8.8 (4.5-11.0) K/uL RBC 4.19 (3.30-5.50) M/uL Hgb 11.9 L (12.0-15.0) g/dL Hct 35.8 L (36.0-48.0) % MCV 85 (80-98) fL MCH 28 (27-31) pg MCHC 33 (32-36) % Plt Count 132 L (150-400) K/uL POC Glucose (74-106) MG/DL Med Orders - Current: Current Medications Acetaminophen (Acetaminophen 325 Mg Tab, 50 Tab Bulk Bottle) 1 - 2 mg PO Q4H PRN PRN Reason: Pain Last Admin: 10/22/20 18:44 Dose: 325 mg Documented by: Benzocaine (Benzocaine 20% Top [place] 56 Gm Bottle) 0 gm TOP Q4H PRN PRN Reason: Pain Last Admin: 10/22/20 18:43 Dose: 1 spray Documented by: Emollient Ointment (Lanolin 100% Cream 40 Gm Tube) 1 gm TOP ASDIRECTED PRN PRN Reason: SORE NIPPLES Ephedrine Sulfate (Ephedrine 50 Mg/Ml Sdv) 10 mg IVPUSH ASDIRECTED PRN PRN Reason: Hypotension Hydrocortisone (Hydrocortisone 2.5% Crm 30 Gm Tube) 1 gm TOP ASDIRECTED PRN PRN Reason: Itching Lactated Ringer's (Ringers, Lactated) 1,000 mls @ 125 mls/hr IV ASDIRECTED [place] Last Admin: 10/22/20 15:00 Dose: 125 mls/hr Documented by: Ibuprofen (Ibuprofen 200 Mg Tab, 24 Tab Bulk Bottle) 600 mg PO Q6H PRN PRN Reason: Pain Last Admin: 10/22/20 18:44 Dose: 600 mg Documented by: Adina Chavira (Adina Chavira Medicated Pads 100/Jar) 1 pad TOP ASDIRECTED PRN PRN Reason: Pain Last Admin: 10/22/20 18:44 Dose: 1 applic Documented by: Discontinued Medications Oxytocin/Sodium Chloride (Pitocin In Ns 20 Units/1,000 Ml) 20 unit in 1,000 mls @ 999 mls/hr IV ASDIRECTED PRN; Protocol PRN Reason: AFTER DELIVERY Last Admin: 10/22/20 15:11 Dose: 999 mls/hr, 999 mls/hr Documented by: Penicillin G Potassium 5 (millunits/ Sodium Chloride) 100 mls @ 200 mls/hr IV ONETIME ONE Stop: 10/22/20 08:59 Last Admin: 10/22/20 09:09 Dose: 200 mls/hr Documented by: Penicillin G Potassium 2.5 (millunits/ Sodium Chloride) 50 mls @ 100 mls/hr IV Q4H [facility] Last Admin: 10/22/20 12:06 Dose: 100 mls/hr Documented by: Lactated Ringer's (Ringers, Lactated) 1,000 mls @ 999 mls/hr IV .BOLUS ONE Stop: 10/22/20 14:20 Last Admin: 10/22/20 18:13 Dose: 999 mls/hr Documented by: Misoprostol (Misoprostol 50 Mcg (1/2 Of 100 Mcg) Tab) 50 mcg VAG ONETIME ONE Stop: 10/22/20 07:31 Last Admin: 10/22/20 08:23 Dose: 50 mcg Documented by: - Infant Interaction Disposition, : Murphy in Room with Family Infant Interaction: Not Interacting Infant Feeding: Bottle Fed Support Person: , Friend - Recovery Exam Fundal Tone: Firm Fundal Level: At Umbilicus Fundal Placement: Midline Lochia Amount: Small Lochia Color: Rubra/Red Perineum Description: Intact, Minimal Bruising/Swelling Episiotomy/Laceration: None Urinary Elimination: Voided - Exam General: Alert, Oriented HEENT: Pupils Equal Neck: Supple Lungs: Normal Respiratory Effort Cardiovascular: Regular Rate GI/Abdominal Exam: Soft, Non-Tender Extremities: Normal Range of Motion, No Pedal Edema, Normal Capillary Refill Skin: Warm Neurological: No New Focal Deficit Psy/Mental Status: Alert, Normal Affect, Normal Mood - Problem List & Annotations (1) Italian speaking patient SNOMED Code(s): 986615764 Code(s): TMZ2129 - Status: Acute Current Visit: Yes (2) Positive GBS test SNOMED Code(s): 477579860, 084216523 Code(s): B95.1 - STREPTOCOCCUS, GROUP B, CAUSING DISEASES CLASSD ELSWHR Status: Acute Current Visit: Yes (3) SNOMED Code(s): 79719120 Code(s): Z34.90 - ENCNTR FOR SUPRVSN OF NORMAL , UNSP, UNSP TRIMESTER Status: Acute Current Visit: Yes Qualifiers: Weeks of gestation: 39 weeks Qualified Code(s): Z3A.39 - 39 weeks gestation of (4) GDM, class A1 SNOMED Code(s): 18469345 Code(s): O24.410 - GESTATIONAL DIABETES MELLITUS IN , DIET CONTROLLED Status: Acute Current Visit: Yes (5) Vaginal delivery SNOMED Code(s): 570681769 Code(s): O80 - ENCOUNTER FOR FULL-TERM UNCOMPLICATED DELIVERY Status: Acute Current Visit: Yes (6) Acute fatty liver of in third trimester SNOMED Code(s): 811757820 Code(s): O26.613 - LIVER AND BILIARY TRACT DISORD IN , THIRD TRIMESTER; K76.0 - FATTY (CHANGE OF) LIVER, NOT ELSEWHERE CLASSIFIED Status: Acute Current Visit: Yes - Problem List Review Problem List Initiated/Reviewed/Updated: Yes - My Orders Last 24 Hours: My Active Orders 10/22/20 Lunch Consistent Carbohydrate Diet [DIET] 10/22/20 13:20 ePHEDrine [ePHEDrine sulfate] 10 mg IVPUSH ASDIRECTED PRN Epidural Catheter Management [OM.PC] Urgent 10/22/20 13:30 Insert Urinary Catheter [OM.PC] ASDIRECTED 10/22/20 15:32 Acetaminophen [Tylenol Bulk Bottle] 1 - 2 mg PO Q4H PRN Benzocaine [[id number]-Thtvyua 20% [place]] See Dose Instructions TOP Q4H PRN Hydrocortisone [Proctozone-HC 2.5% Crm] 1 gm TOP ASDIRECTED PRN Ibuprofen [Motrin Bulk Bottle] 600 mg PO Q6H PRN Lanolin [Lansinoh HPA] 1 gm TOP ASDIRECTED PRN witch Ida [Tucks] 1 pad TOP ASDIRECTED PRN Assess Uterine Involution [WOMSER] Per Unit Routine 10/22/20 15:33 Patient Status [ADT] Routine Vital Signs [RC] PFP Perineal Care [OM.PC] Per Unit Routine Peripheral IV Discontinue [OM.PC] Routine - Assessment Assessment:: 10/22/20 35 year old G7 now P5 who is 39 weeks gestation delivered via without complications male , 10/23/20 Mood happy no headaches Breast soft, no milk yet Cramping controlled with NSAIDs, flow light voiding with pain HGB 11.9 - Plan Plan:: 10/22/20 39 week IUP with GDM, fair control BPP8/8, NST reactive induction for GDM Plan: Miso 50 mcg this morning reassess at noon epidural later for pain control plan for vaginal delivery 10/22/20 routine post cares CBC in am GBS position 48 hour stay, Sunday discharge Support 10/23/20 Continue routine care Will formula fed until milk comes in I encouraged ambulation today Continue Metformin 500 mg every evening Home tomorrow
[2020-10-23] MEDS ORDERED: metFORMIN 500 MG Tab PO SCH (17:00)
--- NOTE | 2020-10-24 10:02 | PCM.PNPP ---
- General Info Date of Service: 10/24/20 (PPD 2 D/C) Admission Dx/Problem (Free Text): Patient Status Order with Admit Dx/Problem 10/22/20 08:11 Patient Status [ADT] Routine Admission Diagnosis/Problem Admission Diagnosis/Problem Functional Status: Reports: Pain Controlled - Review of Systems General: Reports: No Symptoms HEENT: Reports: No Symptoms Pulmonary: Reports: No Symptoms Cardiovascular: Reports: No Symptoms Gastrointestinal: Reports: No Symptoms Genitourinary: Reports: No Symptoms Musculoskeletal: Reports: No Symptoms Skin: Reports: No Symptoms Neurological: Reports: No Symptoms Psychiatric: Reports: No Symptoms - Patient Data Vital Signs - Most Recent: Last Vital Signs Temp 98.2 F 10/24/20 04:12 Pulse 51 L 10/24/20 04:12 Resp 16 10/24/20 04:12 BP 101/66 10/24/20 04:12 Pulse Ox 97 10/24/20 04:12 Weight - Most Recent: 168 lb Med Orders - Current: Current Medications Acetaminophen (Acetaminophen 325 Mg Tab, 50 Tab Bulk Bottle) 1 - 2 mg PO Q4H PRN PRN Reason: Pain Last Admin: 10/22/20 18:44 Dose: 325 mg Documented by: Benzocaine (Benzocaine 20% Top Burt 56 Gm Bottle) 0 gm TOP Q4H PRN PRN Reason: Pain Last Admin: 10/22/20 18:43 Dose: 1 spray Documented by: Emollient Ointment (Lanolin 100% Cream 40 Gm Tube) 1 gm TOP ASDIRECTED PRN PRN Reason: SORE NIPPLES Ephedrine Sulfate (Ephedrine 50 Mg/Ml Sdv) 10 mg IVPUSH ASDIRECTED PRN PRN Reason: Hypotension Hydrocortisone (Hydrocortisone 2.5% Crm 30 Gm Tube) 1 gm TOP ASDIRECTED PRN PRN Reason: Itching Ibuprofen (Ibuprofen 200 Mg Tab, 24 Tab Bulk Bottle) 600 mg PO Q6H PRN PRN Reason: Pain Last Admin: 10/22/20 18:44 Dose: 600 mg Documented by: Metformin HCl ([facility] 500 Mg Tab) [facility] Last Admin: 10/23/20 17:07 Dose: 500 mg Documented by: Adina Chavira (Adina Chavira Medicated Pads 100/Jar) 1 pad TOP ASDIRECTED PRN PRN Reason: Pain Last Admin: 10/22/20 18:44 Dose: 1 applic Documented by: Discontinued Medications Lactated Ringer's (Ringers, Lactated) 1,000 mls @ 125 mls/hr IV ASDIRECTED [facility] Last Admin: 10/22/20 15:00 Dose: 125 mls/hr Documented by: Oxytocin/Sodium Chloride (Pitocin In Ns 20 Units/1,000 Ml) 20 unit in 1,000 mls @ 999 mls/hr IV ASDIRECTED PRN; Protocol PRN Reason: AFTER DELIVERY Last Admin: 10/22/20 15:11 Dose: 999 mls/hr, 999 mls/hr Documented by: Penicillin G Potassium 5 (millunits/ Sodium Chloride) 100 mls @ 200 mls/hr IV ONETIME ONE Stop: 10/22/20 08:59 Last Admin: 10/22/20 09:09 Dose: 200 mls/hr Documented by: Penicillin G Potassium 2.5 (millunits/ Sodium Chloride) 50 mls @ 100 mls/hr IV Q4H [facility] Last Admin: 10/22/20 12:06 Dose: 100 mls/hr Documented by: Lactated Ringer's (Ringers, Lactated) 1,000 mls @ 999 mls/hr IV .BOLUS ONE Stop: 10/22/20 14:20 Last Admin: 10/22/20 18:13 Dose: 999 mls/hr Documented by: Misoprostol (Misoprostol 50 Mcg (1/2 Of 100 Mcg) Tab) 50 mcg VAG ONETIME ONE Stop: 10/22/20 07:31 Last Admin: 10/22/20 08:23 Dose: 50 mcg Documented by: - Infant Interaction Infant Disposition, : [place] in Room with Family Infant Interaction: Holding Infant, Not Interacting Infant Feeding: Bottle Fed Support Person: , Friend - Recovery Exam Fundal Tone: Firm Fundal Level: 1 Fingerbreadths Below Umbilicus Fundal Placement: Midline Lochia Amount: Small Lochia Color: Rubra/Red Perineum Description: Intact, Minimal Bruising/Swelling Episiotomy/Laceration: None Urinary Elimination: Voided - Exam General: Alert, Oriented HEENT: Pupils Equal, Pupils Reactive Neck: Supple Lungs: Normal Respiratory Effort Cardiovascular: Regular Rate GI/Abdominal Exam: Soft, Non-Tender Extremities: No Pedal Edema, Normal Capillary Refill Skin: Warm Wound/Incisions: Healing Well Neurological: No New Focal Deficit Psy/Mental Status: Alert, Normal Affect, Normal Mood - Problem List & Annotations (1) French speaking patient SNOMED Code(s): 979591701 Code(s): SUE1580 - Status: Acute Current Visit: Yes (2) Positive GBS test SNOMED Code(s): 845604533, 742068400 Code(s): B95.1 - STREPTOCOCCUS, GROUP B, CAUSING DISEASES CLASSD [id number] Status: Acute Current Visit: Yes (3) SNOMED Code(s): 70950459 Code(s): Z34.90 - ENCNTR FOR SUPRVSN OF NORMAL , UNSP, UNSP TRIMESTER Status: Acute Current Visit: Yes Qualifiers: Weeks of gestation: 39 weeks Qualified Code(s): Z3A.39 - 39 weeks gestation of (4) GDM, class A1 SNOMED Code(s): 67253753 Code(s): O24.410 - GESTATIONAL DIABETES MELLITUS IN , DIET CONTROLLED Status: Acute Current Visit: Yes (5) Vaginal delivery SNOMED Code(s): 612898574 Code(s): O80 - ENCOUNTER FOR FULL-TERM UNCOMPLICATED DELIVERY Status: Acute Current Visit: Yes (6) Acute fatty liver of in third trimester SNOMED Code(s): 231489882 Code(s): O26.613 - LIVER AND BILIARY TRACT DISORD IN , THIRD TRIMESTER; K76.0 - FATTY (CHANGE OF) LIVER, NOT ELSEWHERE CLASSIFIED Status: Acute Current Visit: Yes - Problem List Review Problem List Initiated/Reviewed/Updated: Yes - My Orders Last 24 Hours: My Active Orders 10/23/20 17:00 metFORMIN [Glucophage] 500 mg PO WITHDINNER - Assessment Assessment:: 10/22/20 35 year old G7 now P5 who is 39 weeks gestation delivered via without complications male infant, 10/23/20 Mood happy no headaches Breast soft, no milk yet Cramping controlled with NSAIDs, flow light voiding with pain HGB 11.9 10/24/20 Feels well, offers no complainants. Wants to go home. will breastfeed her baby after her milk comes in will continue Metformin until I see her in 6 weeks - Plan Plan:: 10/22/20 39 week IUP with GDM, fair control BPP8/8, NST reactive induction for GDM Plan: Miso 50 mcg this morning reassess at noon epidural later for pain control plan for vaginal delivery 10/22/20 routine post cares CBC in am GBS position 48 hour stay, Sunday discharge Support 10/23/20 Continue routine care Will formula fed until milk comes in I encouraged ambulation today Continue Metformin 500 mg every evening Home tomorrow 10/24/20 Home today 6 week post visit
[2020-10-24 11:06] VITALS: BP 128/87; PULSE 63
== END 2020-10-24 14:28 | disposition home or self-care (01) | DRG 806 ==
LOC: JP.OB 07:03 → OBSVTOIN 15:11 → JP.MS 18:41
PROVIDERS: ADMIT Nurse Practitioner Family; ATTEND Nurse Practitioner Family
PROC: 10E0XZZ Delivery of Products of Conception, External Approach (ICD-10-PCS; principal; 2020-10-22)
PROC: 3E0P7VZ Introduction of Hormone into Female Reproductive, Via Natural or Artificial Opening (ICD-10-PCS; 2020-10-22)
PROC: 10907ZC Drainage of Amniotic Fluid, Therapeutic from Products of Conception, Via Natural or Artificial Opening (ICD-10-PCS; 2020-10-22)
PROC: 3E0R3BZ Introduction of Anesthetic Agent into Spinal Canal, Percutaneous Approach (ICD-10-PCS; 2020-10-22)
PROC: 4A1HXCZ Monitoring of Products of Conception, Cardiac Rate, External Approach (ICD-10-PCS; 2020-10-22)
DX: O24.420 Gestational diabetes mellitus in childbirth, diet controlled (principal); O26.62 Liver and biliary tract disorders in childbirth; Z37.0 Single live birth; Z3A.39 39 weeks gestation of pregnancy; O99.824 Streptococcus B carrier state complicating childbirth; K76.0 Fatty (change of) liver, not elsewhere classified
CPT/HCPCS: 36415; 51702; 76819; 76819-26; 80053; 80305-QW; 81001; 82962; 85027; 99211; A9270-GY; J2540; J2590; J7120

== ENCOUNTER 2023-12-25 12:46 | Emergency (ER) | payer SELFPAY ==
[2023-12-25 15:46] LABS: BASOPHILS ABSOLUTE AUTO 0.05 K/uL (0.00-0.10); BASOPHILS PERCENT AUTO 0.7 % (0.1-1.3); EOSINOPHILS ABSOLUTE AUTO 0.22 K/uL (0.00-0.40); EOSINOPHILS PERCENT AUTO 3.2 % (0.0-5.4); HEMATOCRIT 33.2 % (34.3-46.0); HEMOGLOBIN 11.3 g/dL (11.2-15.5); IMMATURE GRAN ABSOLUTE AUTO 0.03 K/uL (0.00-0.23); IMMATURE GRAN PERCENT AUTO 0.4 % (0.0-0.7); LYMPHOCYTES ABSOLUTE AUTO 1.15 K/uL (0.8-3.3); LYMPHOCYTES PERCENT AUTO 16.9 % (11.4-47.7); MEAN CORPUSCULAR HEMOGLOBIN 26.2 pg (31.6-35.5); MONOCYTES ABSOLUTE AUTO 0.49 K/uL (0.20-0.90); MONOCYTES PERCENT AUTO 7.2 % (3.3-12.6); NEUTROPHILS ABSOLUTE AUTO 4.86 K/uL (1.0-7.6); NEUTROPHILS PERCENT AUTO 71.6 % (40.0-78.1); PLATELET COUNT,PLT 222 K/uL (130-375); RED BLOOD CELL COUNT 4.31 M/uL (3.77-5.24); WHITE BLOOD CELL COUNT,WBC 6.8 K/uL (3.2-11.0)
[2023-12-25 16:16] LABS: A/G RATIO 0.9 (1.2-2.2); ALANINE AMINOTRANSFERASE,ALT 33 U/L (12-78); ALBUMIN 3.5 g/dL (3.4-5.0); ALKALINE PHOSPHATASE 83 U/L (46-116); ANION GAP 12.9 mmol/L (5.0-14.0); ASPARTATE AMNIOTRANSFERASE,AST 20 U/L (15-37); BILIRUBIN TOTAL 0.4 mg/dL (0.2-1.0); BLOOD UREA NITROGEN,BUN 7 mg/dL (7-18); C-REACTIVE PROTEIN < 0.50 mg/dL (<0.50); CALCIUM 8.8 mg/dL (8.5-10.1); CARBON DIOXIDE,CO2 25 mmol/L (21-32); CHLORIDE,CL 105 mmol/L (100-108); CREATININE 0.5 mg/dL (0.6-1.0); EST CRCL DRUG DOSING (CG) 109.58 mL/min; ESTIMATED GFR 123 mL/min (>60); GLUCOSE RANDOM 95 mg/dL (74-106); POTASSIUM,K 3.9 mmol/L (3.6-5.2); PROTEIN TOTAL,TP 7.6 g/dL (6.4-8.2); SODIUM,NA 139 mmol/L (140-148)
[2023-12-25] MEDS: Alum Hydrox/Mag Hydrox/Simeth 15 ML, Lidocaine 2% 15 ML PO ONE (17:05)
[2023-12-25 17:08] VITALS: BP 109/65; PULSE 53
== END 2023-12-25 17:50 | disposition home or self-care (01) ==
LOC: JP.ED 12:46
DX: R10.13 Epigastric pain (principal)
CPT/HCPCS: 36415; 80053; 83605; 83690; 84703; 85025; 86140; 99284; A9270; 99283